=== PATIENT | male | born 1970 | race Caucasian/White ===

== ENCOUNTER 2018-03-04 19:09 | Inpatient (IN) | payer OTHER ==
[2018-03-04] MEDS ORDERED: Lorazepam 2 MG/ML VIAL ONE ×2 (19:28→19:55)
[2018-03-04] MEDS ORDERED: Fosphenytoin Sodium 1,500 MG in Sodium Chloride 0.9% 50 ML IVPB SCH (19:45)
[2018-03-04] MEDS ORDERED: Rocuronium Bromide 50 MG/5 ML VIAL ONE ×2 (19:56→19:57)
[2018-03-04 20:13] LABS: #Eosinphils 0.1 thou/uL (0.0-0.7); #Lymphocytes 2.1 thou/uL (1.20-3.40); #Monocytes 0.5 thou/uL (0.11-0.59); #Neutrophils 5.1 thou/uL (1.40-6.50); %Basophils 0.2 % (0.0-1.0); %Eosinophils 1.7 % (0.0-10.0); %Lymphocytes 27.2 % (21.0-51.0); %Monocytes 6.2 % (0.0-10.0); %Neutrophils 64.8 % (42.0-75.0); Hemoglobin 15.2 g/dL (14.0-18.0); Mean Corpuscular HGB CONC 33.9 g/dL (32.0-36.0); Mean Corpuscular Hemoglobin 33.9 pg (27.0-31.0); Mean Platelet Volume 6.2 fL (7.4-10.4); Platelet Count 229 thou/uL (130-400); RBC Distribution Width 11.3 % (11.5-14.5); Red Blood Cell (RBC) Count 4.47 mill/uL (4.70-6.10); White Blood Cell (WBC) Count 7.9 thou/uL (4.8-10.8)
[2018-03-04 20:26] LABS: Actual Bicarbonate (HCO3a) 27.3 mEq/L (22-26); Base Excess (BEa) 0.9 mEq/L (0 (+/-) 2.5); CO2 Tension 50.2 mmHg (35.0-45.0); O2 Tension (PaO2) 85.9 mmHg (80.0-100.0); pH, Arterial 7.35 (7.35-7.45)
[2018-03-04 20:27] LABS: Calcium, Ionized 1.2 mmol/L (1.12-1.30); Carboxyhemoglobin (COHb) 1.4 gm% (0.0-3.0); Hematocrit-ABG 43.7 % (42.0-52.0); Hemoglobin (Hb) 14.8 g/dL (14.0-18.0); Potassium - ABG Lab 3.6 mmol/L (3.70-5.30)
[2018-03-04 20:28] LABS: Analyzer IN Cardio ER; Puncture Site LRA
[2018-03-04 20:39] LABS: CKMB 0.7 ng/mL (0-6.6); Troponin I 0.013 ng/mL (< 0.028)
[2018-03-04 20:40] LABS: ALT (SGPT) 19 U/L (8-55); AST (SGOT) 16 U/L (5-34); Albumin 4.1 g/dL (3.5-5.0); Alkaline Phosphatase 82 U/L (40-150); Anion Gap 16 mmol/L (10-20); BUN (Urea Nitrogen) 9 mg/dL (8.9-20.6); Bilirubin, Total 0.4 mg/dL (0.2-1.2); CK (CPK) 62 U/L (30-200); Calc. Creatinine Clearance 0 mL/min (70-130); Calcium 9.1 mg/dL (7.8-10.44); Carbon Dioxide 22 mmol/L (22-29); Chloride 106 mmol/L (98-107); Estimated GFR-MDRD 77; Glucose 99 mg/dL (70-105); Lipase 27 U/L (8-78); Potassium 4.1 mmol/L (3.5-5.1); Protein, Total 7.1 g/dL (6.0-8.3); Sodium 140 mmol/L (136-145)
[2018-03-04 20:43] LABS: Carbamazepine-Tegretol 7.9 ug/mL (4.0-12.0)
[2018-03-04 21:03] LABS: Bilirubin Negative (Negative); Blood, Urine Negative (Negative); Clarity CLEAR (Clear); Glucose, Urine (Dipstick) Negative (Negative); Leukocyte Negative (Negative); Nitrite Negative (Negative); Protein, Urine (Dipstick) Negative (Neg-Trace); Specific Gravity, Urine 1.009 (1.002-1.036); Urobilinogen 0.2 mg/dL (0.2-1.0)
--- NOTE | 2018-03-04 21:03 | PDOC.FPRHP ---
- History of Present Illness Chief Complaint: status epilepticus History of Present Illness: History taken from EMS. Patient started with generalized tonic-clonic seizure at 5:30pm. He has a pertinent history of seizure disorder and CVA x2. In the field the patient was given 5 of versed and stopped seizing. On arrival to the ED the patient started seizing again and was given 5 more of versed along with ativan, he was no longer protecting his airway and thus was intubated. ED Course: Versed 5 in the field Versed 5 in the ED, Plus 2 2 of Ativan 1,500mg fosphenytoin 2g fentanyl Propofol sedation protocol - Allergies/Adverse Reactions Allergies Allergy/AdvReac Type Severity Reaction Status Date / Time lactose Allergy Verified 04/19/17 21:58 milk thistle (Silybum Allergy Verified 04/19/17 21:58 marianum) peanut Allergy Verified 04/19/17 21:58 - Home Medications Medication Instructions Recorded Confirmed Type Aspirin [Adult Low Dose Aspirin EC] 81 mg PO DAILY 04/19/17 03/04/18 History Atorvastatin Calcium 20 mg PO DAILY 04/19/17 03/04/18 History FLUoxetine HCl 20 mg PO HS 04/19/17 03/04/18 History Acetaminophen [Tylenol Regular 650 mg PO Q4H PRN #0 tab 04/20/17 03/04/18 Rx Strength] Cholecalciferol [Vitamin D3] 1,000 unit PO DAILY 03/04/18 03/04/18 History Docusate Sodium [Dulcolax Stool 100 mg PO BID 03/04/18 03/04/18 History Softener] Lisinopril [Zestril] 5 mg PO DAILY 03/04/18 03/04/18 History Meloxicam [Mobic] 15 mg PO DAILY 03/04/18 03/04/18 History Omeprazole 20 mg PO BID 03/04/18 03/04/18 History carBAMazepine [Carbamazepine] 200 mg PO TID 03/04/18 03/04/18 History - History PMHx: PSHx: FHx: Social: - Review of Systems ROS unobtainable: due to endotracheal tube - Vital signs BP: 107/70 HR: 103 RR: 18 Tmax: 100.0 Pox: 99% on RA Wt: 113.4 - Physical Exam -Constitutional: Patient is fighting sedation in the ED, motions that he wants tube taken out, no evidence of seizures at time of examination HEENT: normocephalic and atraumatic, PERRLA, no scleral icterus, TM's clear and intact, MMM Neck: supple, FROM Heart: RRR, normal S1/S2 Lungs: CTAB, no respiratory distress, good air movement, other (intubated) Abdomen: soft, non-tender, bowel sounds present, no masses/distention Musculoskeletal: normal structure, normal tone -Neurological: Patient motions he would like tube taken out. Withdraws to pain. Pupils Reactive. Skin: no rash/lesions, capillary refill <2 seconds Heme/Lymphatic: no unusual bruising or bleeding FMR H&P: Results - Labs Result Diagrams: 03/04/18 20:06 03/04/18 20:05 Lab results: WBC 7.9 thou/uL (4.8-10.8) 03/04/18 20:06 Hgb 15.2 g/dL (14.0-18.0) 03/04/18 20:06 Hct 44.8 % (42.0-52.0) 03/04/18 20:06 MCV 100.0 fl (80.0-94.0) H 03/04/18 20:06 Plt Count 229 thou/uL (130-400) 03/04/18 20:06 Neutrophils % 64.8 % (42.0-75.0) 03/04/18 20:06 ABG pH 7.35 (7.35-7.45) 03/04/18 20:16 ABG pCO2 50.2 mmHg (35.0-45.0) H 03/04/18 20:16 ABG pO2 85.9 mmHg (80.0-100.0) 03/04/18 20:16 Sodium 140 mmol/L (136-145) 03/04/18 20:05 Potassium 4.1 mmol/L (3.5-5.1) 03/04/18 20:05 Chloride 106 mmol/L (98-107) 03/04/18 20:05 Carbon Dioxide 22 mmol/L (22-29) 03/04/18 20:05 BUN 9 mg/dL (8.9-20.6) 03/04/18 20:05 Creatinine 1.03 mg/dL (0.6-1.3) 03/04/18 20:05 Glucose 99 mg/dL (70-105) 03/04/18 20:05 Calcium 9.1 mg/dL (7.8-10.44) 03/04/18 20:05 Total Bilirubin 0.4 mg/dL (0.2-1.2) 03/04/18 20:05 AST 16 U/L (5-34) 03/04/18 20:05 ALT 19 U/L (8-55) 03/04/18 20:05 Alkaline Phosphatase 82 U/L (40-150) 03/04/18 20:05 Creatine Kinase 62 U/L (30-200) 03/04/18 20:05 CK-MB (CK-2) 0.7 ng/mL (0-6.6) 03/04/18 20:06 B-Natriuretic Peptide Less than 10.0 pg/mL (0-100) 03/04/18 20:05 Serum Total Protein 7.1 g/dL (6.0-8.3) 03/04/18 20:05 Albumin 4.1 g/dL (3.5-5.0) 03/04/18 20:05 Lipase 27 U/L (8-78) 03/04/18 20:05 FMR H&P: A/P - Problem List (1) HTN (hypertension) Current Visit: No Status: Acute Code(s): I10 - ESSENTIAL (PRIMARY) HYPERTENSION Comment: Stable (2) TIA (transient ischemic attack) Current Visit: No Status: Acute (3) Hyperlipidemia Current Visit: No Status: Chronic Code(s): E78.5 - HYPERLIPIDEMIA, UNSPECIFIED Comment: Continue Lipitor - Plan # Status Epilepticus - propofol protocol - Fosphenytoin 1.5 g loading dose, 500 BID maintenance - EEG - Neuro consult in AM - UDS, U/A - Carbamazepime is therapeutic, restart when extubated # History of CVA x2 - moved all extremities - home meds once extubated # GERD - home protonix # Hx of Hep C - f/u outpt # HTN - home meds when extubated # Code - full # PPx - SCDs FMR H&P: Upper Level - Pertinent history 47 year old white male with past medical history CVA & seizures presents from custodial via EMS for status epilepticus. Onset 03/04/18 at 17:30. Generalized tonic clonic seizures reported. Patient received 10 mg Versed. He seized again in the ED and was intubated. He was initially responsive only to sternal rub on arrival. In the ED he was seen by Dr. Weeks and given Ativan 2 mg, 1 L NS, 1500 mg fosphenytoin, 100 mg rocuronium, 20 mg etomidate, and 8 mg Zofran. PMH based on records includes GERD, HTN, Hep C, and CVA x2 with residual deficits - Pertinent findings HR 108 BP 114/64 O2 sats 99% on RA Temp 97.7 General: Intubated and sedated Eyes: Pupils sluggish ENT: Endotracheal tube in place. CV: Slightly tachycardic. Regular rhythm. Pulses full and equal in all 4 extremities. Cap refill <2 seconds Resp: CTAB. No wheezing, rales, or rhonchi. Abdomen: Nondistended. No masses Extremities: No edema. Skin: No rash or ulcer. No palpable lesions Neuro: Patient sedated. - Plan Date/Time: 03/04/182102 IYves DO, have evaluated this patient and agree with findings/plan as outlined by internal auditor resident. Pertinent changes/additions are listed here. 47 year old white male presents with: 1) Status epilepticus - Admit to CCU. Continue propofol and fosphenytoin. CT head with no acute processes. Pulmonology consulted. Consult neuro in the morning. Seizure precautions. 2) History of CVA - Restart home meds when cleared for po. Consult PT/OT. 3) GERD - Protonix 4) Hep C - Treatment history unkown. Likely just needs outpatient follow up 5) HTN - Monitor BP. Restart home meds when cleared for po. Will give iv meds if needed Attending Addendum - Attending Addendum Date/Time: 03/05/18 0817 (seen on 03/04 in the ED) I personally evaluated the patient and discussed the management with Dr. Frank and team. I agree with and repeated. the History, Examination, Assessment and Plan documented above with any addition or exceptions noted below. Status epilepticus. Intubated. PMSFH and SH recreated from chart. Propfol gtt , lung protective ventilation, EEG and neuro consultation. Will be vigilant for infectious sources.
[2018-03-04] MEDS ORDERED: Midazolam HCl 2 mg/2 ml Vial ONE ×2 (21:05→21:45)
[2018-03-04 21:12] LABS: Amphetamine Not Detected (NotDetected); Barbiturates Screen Not Detected (NotDetected); Benzodiazepine Screen Not Detected (NotDetected); Cocaine Metabolite Screen Not Detected (NotDetected); Medtox Control Line Valid? VALID (VALID); Medtox Reader # READER 4; Methadone Not Detected (NotDetected); Methamphetamine Not Detected (NotDetected); Opiate Screen Not Detected (NotDetected); Oxycodone Screen Not Detected (NotDetected); Phencyclidine (PCP) Not Detected (NotDetected); THC/Cannabinoid Screen Not Detected (NotDetected); Tricyclic Screen Not Detected (NotDetected)
--- NOTE | 2018-03-04 21:14 | RAD ---
FRONTAL VIEW CHEST: 03/04/18 INDICATION: Altered mental status. FINDINGS: Endotracheal tube is present with tip projecting at the level of the thoracic inlet. There is enteric catheter traversing the left upper abdomen. Enlargement of the cardiac silhouette and mediastinal st ructures present. There is added density of the perihilar regions. The findings likely relate to vasc ular congestion. IMPRESSION: Evidence of CHF. Probable perihilar edema bilaterally. Intubated patient. Recommend continued followup. POS: [facility]
[2018-03-04] MEDS ORDERED: Fentanyl 100 MCG/2 ML VIAL ONE (21:18)
--- NOTE | 2018-03-04 21:25 | CT ---
EXAM: NONCONTRAST HEAD CT 03/04/18 HISTORY: Seizure, altered mental status. COMPARISON: 04/19/17. TECHNIQUE: Noncontrast head CT is performed from skull base to skull vertex. FINDINGS: No parenchymal hemorrhage. No extra-axial hematoma. No midline shift. Basilar cisterns are patent. Ag e appropriate brain volume. Cortical moran-white matter differentiation is preserved. Ventricles and sulci are patent and symmetric. The calvarium is intact. Adequate aeration of the mastoid air cells. There is mild mucosal thickening of the paranasal sinuses with small mucous retention cyst in both maxillary sinuses. IMPRESSION: No acute intracranial process. POS: [facility]
[2018-03-04] MEDS ORDERED: Propofol 1,000 MG/100 ML VIAL IV ONE (21:37)
[2018-03-04] MEDS ORDERED: Fentanyl CADD 250 ML IVPB SCH (22:08)
[2018-03-04] MEDS ORDERED: Fentanyl BOLUS 250 ML IVPB PRN (22:08)
[2018-03-04] MEDS ORDERED: DISCONTINUE PREVIOUS NARCOTIC PAIN MEDICATIONS AND BENZODIAZEPINES FS SCH (22:08)
[2018-03-04] MEDS ORDERED: fentaNYL Citrate/PF 2,000 MCG in Sodium Chloride 0.9% 60 ML IV SCH (22:15)
[2018-03-04] MEDS ORDERED: Ondansetron ODT 4 MG TAB SL PRN (22:25)
[2018-03-04] MEDS ORDERED: Sodium Chloride 0.9% 1,000 ML IV SCH (22:25)
[2018-03-04] MEDS ORDERED: Ondansetron PF 4 MG/2 ML Vial IVP PRN (22:25)
[2018-03-04] MEDS ORDERED: CCU Electrolyte Replacement 1 EACH IVPB ONE (22:28)
[2018-03-04] MEDS ORDERED: Acetaminophen 325 MG Suppository PR PRN (22:28)
[2018-03-04] MEDS ORDERED: Sedation Protocol FS ONE (22:28)
[2018-03-04] MEDS ORDERED: Lorazepam 2 MG/ML VIAL SLOW IVP PRN (22:28)
[2018-03-04] MEDS ORDERED: Potassium Phosphate 9 MMOL in Sodium Chloride 0.9% 100 ML IVPB PRN (22:32)
[2018-03-04] MEDS ORDERED: Magnesium Oxide 400 MG TAB PO PRN ×2 (22:32)
[2018-03-04] MEDS ORDERED: Magnesium 2 GM/NS 0.9% 100 ML 2 GM in Premix Bag 1 BAG IVPB PRN (22:32)
[2018-03-04] MEDS ORDERED: Potassium Phosphate 15 MMOL in Sodium Chloride 0.9% 250 ML 250 ML IV PRN (22:32)
[2018-03-04] MEDS ORDERED: CCU ELECTROLYTE REPLACEMENT PROTOCOL FS PRN (22:32)
[2018-03-04] MEDS ORDERED: Potassium Chloride 40 MEQ in Sodium Chloride 0.9% 250 ML 250 ML IVPB PRN (22:32)
[2018-03-04] MEDS ORDERED: Potassium Chloride 40 MEQ in Premix Bag 1 BAG IVPB PRN (22:32)
[2018-03-04] MEDS ORDERED: Potassium Phosphate 12 MMOL in Sodium Chloride 0.9% 250 ML 250 ML IV PRN (22:32)
[2018-03-04] MEDS ORDERED: Potassium Chloride 20 MEQ TAB PO PRN (22:32)
[2018-03-04] MEDS: Sodium Chloride 0.9% 1,000 ML IV SCH (22:49)
[2018-03-05] MEDS: Lorazepam 2 MG/ML VIAL SLOW IVP PRN ×3 (00:21→18:28)
[2018-03-05] MEDS: Propofol 1,000 MG/100 ML VIAL IV PRN ×4 (00:21→16:45)
--- NOTE | 2018-03-05 06:37 | PDOC.FM ---
- Objective Vital Signs & Weight: Vital Signs (12 hours) Pulse Resp BP 03/05/18 06:00 18 03/05/18 04:00 18 03/05/18 02:34 76 94/59 L 03/05/18 02:00 18 03/05/18 00:00 21 H 03/04/18 22:28 88 115/61 Weight Weight 115.3 kg Most Recent Monitor Data Heart Rate from ECG 80 NIBP 93/59 NIBP BP-Mean 70 Respiration from ECG 18 SpO2 100 I&O: 03/03/18 03/04/18 03/05/18 06:59 06:59 06:59 Intake Total 635 Output Total 1110 Balance -475 Result Diagrams: 03/04/18 20:06 03/04/18 20:05 <Delilah Cardenas - Last Filed: 03/05/18 06:44> - Objective Vital Signs & Weight: Vital Signs (12 hours) Temp Pulse Resp BP Pulse Ox 03/05/18 08:00 99.4 F 77 18 100 03/05/18 06:40 77 96/59 L 03/05/18 06:00 18 03/05/18 04:00 18 03/05/18 02:34 76 94/59 L 03/05/18 02:00 18 03/05/18 00:00 21 H 03/04/18 22:28 88 115/61 Weight Weight 115.3 kg Most Recent Monitor Data Heart Rate from ECG 82 NIBP 145/78 NIBP BP-Mean 94 Respiration from ECG 13 SpO2 100 I&O: 03/04/18 03/05/18 03/06/18 06:59 06:59 06:59 Intake Total 635 0 Output Total 1110 360 Balance -475 -360 Result Diagrams: 03/04/18 20:06 03/04/18 20:05 <Leroy Boston - Last Filed: 03/05/18 10:17> Dx/Plan (1) Recurrent seizures Code(s): G40.909 - EPILEPSY, UNSP, NOT INTRACTABLE, WITHOUT STATUS EPILEPTICUS Status: Acute (2) Seizure disorder Code(s): G40.909 - EPILEPSY, UNSP, NOT INTRACTABLE, WITHOUT STATUS EPILEPTICUS Status: Acute (3) H/O: CVA (cerebrovascular accident) Code(s): Z86.73 - PRSNL HX OF TIA (TIA), AND CEREB INFRC W/O RESID DEFICITS Status: Acute (4) HTN (hypertension) Code(s): I10 - ESSENTIAL (PRIMARY) HYPERTENSION Status: Acute (5) Hyperlipidemia Code(s): E78.5 - HYPERLIPIDEMIA, UNSPECIFIED Status: Chronic - Plan Plan: 1. Recurrent seizures - propofol protocol - Fosphenytoin 1.5 g loading dose, 500 BID maintenance - will consult Dr. Coburn this morning AM - UDS, U/A negative - Carbamazepime is therapeutic, restart when extubated 2. History of CVA x2 - moved all extremities - home meds once extubated 3. GERD - home protonix 4. Hx of Hep C - unaware if patient has been treated 5. HTN - home meds when extubated 8. PPx - SCDs <Delilah Cardenas - Last Filed: 03/05/18 06:44> Attending Addendum - Attending Addendum Date/Time: 03/05/18 1015 I personally evaluated the patient and discussed the management with Dr. Cardenas in ICU A10. I agree with the History, Examination, Assessment and Plan documented above with any addition or exceptions noted below. He is currently sedated on propofol, intubated and unresponsive. CT Brain is negative/normal. CXR hints of mild pulm vasc congestion. VS are Stable/normal. Lungs: CTA, Cor: RRR. O2 Sats 100% on vent. Abdomen soft. Ext: No C/E/C/P. Await results of EEG and appreciate Neurology input. MD Parish <Leroy Boston - Last Filed: 03/05/18 10:17>
[2018-03-05] MEDS: Pantoprazole 40 MG VIAL IVP SCH (10:52)
--- NOTE | 2018-03-05 11:12 | CON ---
DATE OF CONSULTATION: 03/05/2018 REASON FOR CONSULTATION: Ventilator management related to status epilepticus. HISTORY OF PRESENT ILLNESS: The patient is a 47-year-old [place] [facility] inmate who was brought into the [facility] room last night with generalized tonic-clonic seizures. He was intubated for airway protection . He was given Versed and stop seizing. There has been a question of whether he is still having par tial seizure in the right upper extremity with sedation has been held today. Currently, we are await ing neurologic input. PAST MEDICAL HISTORY: 1. Stroke. 2. Hypertension. 3. Hepatitis C. 4. Gastroesophageal reflux. PAST SURGICAL HISTORY: Unknown. PSYCHIATRIC HISTORY: Remarkable for depression. SOCIAL HISTORY: Not known. ALLERGIES: LACTOSE INTOLERANCE, MILK THISTLE, PEANUTS. MEDICATIONS: Prior to admission, Tegretol 200 mg t.i.d., fluoxetine 20 mg daily, atorvastatin 20 mg daily, acetaminophen 650 mg every 4 hours as needed, omeprazole 20 mg b.i.d., Mobic 15 mg daily, aaron nopril 5 mg daily, docusate 100 mg b.i.d., cholecalciferol 1000 units daily, aspirin 81 mg daily. REVIEW OF SYSTEMS: Unobtainable as the patient is in mechanical ventilation. PHYSICAL EXAMINATION: VITAL SIGNS: Temperature 99.3, pulse 86, blood pressure 146/96, O2 sat 100%. GENERAL: The patient is sedated on propofol. HEENT: Pupils are reactive. Sclerae anicteric. Oropharynx clear. NECK: No JVD. LUNGS: Clear. CARDIOVASCULAR: S1, S2 regular, without murmur. ABDOMEN: Soft and nontender. EXTREMITIES: No clubbing, cyanosis, or edema. NEUROLOGIC: Patient is unable to follow commands at this time. Apparently, becomes agitated very ea sily when sedation is stopped. IMAGING: Brain CT was negative. Chest x-ray demonstrates mild cardiomegaly. ET tube resides about 5.3 cm above the ab. LABORATORY DATA: White blood cell count 7.9, hematocrit 44.8, platelet count 229. PH 7.35, pCO2 of 50, pO2 85, this on SIMV rate 15, tidal volume 500, PEEP 5, pressure support 0, FiO2 100%. Sodium 14 0, potassium 4.1, chloride 106, CO2 22, BUN 9, creatinine 1.0, glucose 99. Prolactin level 32. TSH 1.15. Urine drug screen was negative. Tegretol level was 7.9, which is in the therapeutic range. ASSESSMENT: 1. Status epilepticus. 2. Acute respiratory failure related to status epilepticus. PLAN: 1. Neurology input. 2. Would hold Versed drip. 3. If mental status is appropriate on minimal sedation, then I would extubate the patient.
--- NOTE | 2018-03-05 11:23 | PDOC.FM ---
- Subjective Subjective: Mr. Marquez is intubated and sedated on propofol at this time. When sedation is turned off he will intermittently open his eyes to voice and sometimes will squeeze either hand. He withdraws to pain. He appears comfortable and there are no new concerns per nursing. They note that he may have some ongoing seizure activity with his right upper extremity when sedation is turned off. - Objective MAR Reviewed: Yes Vital Signs & Weight: Vital Signs (12 hours) Temp Pulse Resp BP Pulse Ox 03/05/18 10:24 79 112/67 03/05/18 08:00 99.4 F 77 18 100 03/05/18 06:40 77 96/59 L 03/05/18 06:00 18 03/05/18 04:00 18 03/05/18 02:34 76 94/59 L 03/05/18 02:00 18 03/05/18 00:00 21 H Weight Weight 115.3 kg Most Recent Monitor Data Heart Rate from ECG 78 NIBP 112/67 NIBP BP-Mean 83 Respiration from ECG 12 SpO2 100 I&O: 03/04/18 03/05/18 03/06/18 06:59 06:59 06:59 Intake Total 635 0 Output Total 1110 510 Balance -475 -510 Result Diagrams: 03/04/18 20:06 03/04/18 20:05 <Delilah Cardenas E - Last Filed: 03/05/18 11:25> - Objective Vital Signs & Weight: Vital Signs (12 hours) Temp Pulse Resp BP Pulse Ox 03/05/18 10:24 79 112/67 03/05/18 08:00 99.4 F 77 18 100 03/05/18 06:40 77 96/59 L 03/05/18 06:00 18 03/05/18 04:00 18 03/05/18 02:34 76 94/59 L 03/05/18 02:00 18 03/05/18 00:00 21 H Weight Weight 115.3 kg Most Recent Monitor Data Heart Rate from ECG 78 NIBP 112/67 NIBP BP-Mean 83 Respiration from ECG 12 SpO2 100 I&O: 03/04/18 03/05/18 03/06/18 06:59 06:59 06:59 Intake Total 635 0 Output Total 1110 510 Balance -475 -510 Result Diagrams: 03/04/18 20:06 03/04/18 20:05 <Leroy Boston - Last Filed: 03/05/18 11:54> Phys Exam - Physical Examination Constitutional: NAD intubated, sedated HEENT: PERRLA, moist MMs, sclera anicteric ET tube in place Neck: no nodes Respiratory: no wheezing diffuse rhonchi BL Cardiovascular: RRR, no significant murmur Gastrointestinal: soft, no distention, positive bowel sounds Musculoskeletal: no edema, pulses present opens eyes to voice, spont moves all extremities ongoing R sided deficits Skin: no rash, normal turgor, cap refill <2 seconds <Delilah Cardenas E - Last Filed: 03/05/18 11:25> Dx/Plan (1) Recurrent seizures Code(s): G40.909 - EPILEPSY, UNSP, NOT INTRACTABLE, WITHOUT STATUS EPILEPTICUS Status: Acute (2) Seizure disorder Code(s): G40.909 - EPILEPSY, UNSP, NOT INTRACTABLE, WITHOUT STATUS EPILEPTICUS Status: Acute (3) H/O: CVA (cerebrovascular accident) Code(s): Z86.73 - PRSNL HX OF TIA (TIA), AND CEREB INFRC W/O RESID DEFICITS Status: Acute (4) HTN (hypertension) Code(s): I10 - ESSENTIAL (PRIMARY) HYPERTENSION Status: Acute (5) Hyperlipidemia Code(s): E78.5 - HYPERLIPIDEMIA, UNSPECIFIED Status: Chronic - Plan Plan: 1. Recurrent seizures - Propofol sedation protocol at 20, on Versed gtt overnight - s/p Fosphenytoin 1.5 g loading dose, 500 BID maintenance - will consult Dr. Coburn this morning - UDS, U/A negative - Carbamazepime is therapeutic, consider restart when extubated vs alternate regimen per neuro recs - Possible ongoing seizure activity in RUE when sedation off 2. History of CVA x2 - moved all extremities - home meds once extubated 3. GERD - protonix 4. Hx of Hep C - unaware if patient has been treated 5. HTN - home meds when extubated 8. PPx - Lovenox <Delilah Cardenas - Last Filed: 03/05/18 11:25> Attending Addendum - Attending Addendum Date/Time: 03/05/18 1153 I personally evaluated the patient and discussed the management with Dr. Cardenas in ICU A10. I agree with the History, Examination, Assessment and Plan documented above with any addition or exceptions noted below. He is currently sedated on propofol, intubated and unresponsive. CT Brain is negative/normal. CXR hints of mild pulm vasc congestion. VS are Stable/normal. Lungs: CTA, Cor: RRR. O2 Sats 100% on vent. Abdomen soft. Ext: No C/E/C/P. Await results of EEG and appreciate Neurology input. MD Parish <Leroy Boston - Last Filed: 03/05/18 11:54>
[2018-03-05] MEDS: Sodium Chloride 0.9% 1,000 ML IV SCH (13:11)
[2018-03-05] MEDS ORDERED: Acetaminophen 650 MG Suppository PR PRN (17:00)
[2018-03-05] MEDS: Morphine 4 MG/ML VIAL SLOW IVP PRN (19:46)
[2018-03-05] MEDS: Enoxaparin Sodium 40 MG/0.4 ML SYRINGE SC SCH (19:49)
[2018-03-06] MEDS: Piperacillin/Tazobactam 4.5 GM in Sodium Chloride 0.9% 100 ML IVPB SCH ×3 (04:30→20:13)
--- NOTE | 2018-03-06 04:56 | CON ---
DATE OF CONSULTATION: 03/05/2018 REFERRING PROVIDER: Blayne Frank MD REASON FOR CONSULTATION: Seizure. HISTORY OF PRESENT ILLNESS: Mr. Marquez is a 47-year-old male who has been consulted for e valuation of recurrent seizures. History is obtained from patient's medical chart as patient is unab le to provide and there are no other family member present for to provide corroborative history. Tiffanie hicks is a nursing home inmate who was brought into the emergency room last night with the generalized tonic clonic seizures. He was intubated for airway protection. He has been given Versed along with Keppr a as a loading dose to help stop the seizures. According to the nurse assisting care of the patient, he has not had any seizures since being admitted in the ICU. PAST MEDICAL HISTORY: Significant for history of hypertension, hepatitis C, GERD, and stroke. PAST SURGICAL HISTORY: Unknown. SOCIAL HISTORY: Unknown. CURRENT MEDICATIONS: Unable to obtain. ALLERGIES: Include LACTOSE INTOLERANCE, PEANUTS, and MILK. REVIEW OF SYSTEMS: Unable to perform. PHYSICAL EXAMINATION: VITAL SIGNS: Blood pressure of 116/67, pulse of 79, temperature of 100.8, respirations of 12 on mech anical ventilation. GENERAL: Intubated, sedated male, in no apparent distress. RESPIRATORY: Clear to auscultation bilaterally. CARDIOVASCULAR: Regular rate and rhythm. NEUROLOGIC: Mental status, the patient is intubated and sedated propofol. He does not respond to ve rbal or noxious stimuli. Cranial nerves: Pupils are 3 mm and reactive. He does breathe over the ve ntilator machine. He does have cough and gag reflex. Motor exam showed normal tone and bulk. He do es not withdraw to noxious stimuli in both upper and lower extremities. LABORATORY DATA: Reviewed, which included CBC, CMP, TSH, prolactin level, BNP, troponin, CPK, urinal ysis, and urine drug screen and carbamazepine level, which is significant for prolactin level of 32.1 3, otherwise unremarkable. IMAGING STUDIES: CT head without contrast was reviewed, which showed no acute intracranial abnormali ty. IMPRESSION: Generalized tonic clonic seizure. ASSESSMENT AND PLAN: Mr. Marquez is a 47-year-old male who presented with recurrent seizur e episodes. At this time, I would recommend continuing him on Keppra 500 mg IV b.i.d. I would recom mend to wean him off of sedation and extubate when medically stable, improved by intensive care physi fortunato. Once he is extubated and able to have oral intake, Keppra can be switched over to 500 mg p.o. b.i.d. Continue supportive care.
--- NOTE | 2018-03-06 07:34 | PDOC.FM ---
- Subjective Subjective: Intubated and sedated this morning. Will arouse to voice and nods his head when asked if he has pain, specifically headache. Concern from primary team and nursing for developing sepsis with fever and tachycardia overnight. - Objective MAR Reviewed: Yes Vital Signs & Weight: Vital Signs (12 hours) Temp Pulse Resp BP Pulse Ox 03/05/18 22:40 100 03/05/18 22:28 15 03/05/18 22:02 78 97/58 L 03/05/18 22:00 15 03/05/18 20:00 100.8 F H 99 15 97 Weight Admit Weight 115.212 kg Weight 115.3 kg Most Recent Monitor Data Heart Rate from ECG 92 NIBP 117/73 NIBP BP-Mean 91 Respiration from ECG 17 SpO2 97 I&O: 03/05/18 03/06/18 03/07/18 06:59 06:59 06:59 Intake Total 635 1198.2 Output Total 1110 1425 Balance -475 -226.8 Result Diagrams: 03/06/18 07:22 03/06/18 07:22 Radiology Reviewed by me: Yes <Delilah Cardenas - Last Filed: 03/06/18 09:22> - Objective Vital Signs & Weight: Vital Signs (12 hours) Pulse Resp BP Pulse Ox 03/06/18 08:03 102 H 107/66 03/06/18 04:00 94 L 03/05/18 22:40 100 03/05/18 22:28 15 Weight Admit Weight 115.212 kg Weight 114.8 g Most Recent Monitor Data Heart Rate from ECG 105 NIBP 134/67 NIBP BP-Mean 80 Respiration from ECG 27 SpO2 96 I&O: 03/05/18 03/06/18 03/07/18 06:59 06:59 06:59 Intake Total 635 3998.2 Output Total 1110 1522 Balance -475 2476.2 Result Diagrams: 03/06/18 07:22 03/06/18 07:22 <Leroy Boston - Last Filed: 03/06/18 10:14> Phys Exam - Physical Examination Constitutional: NAD HEENT: PERRLA dry MM, ET tube in place Neck: supple scattered rhonchi, decreased air entry in LLL Cardiovascular: RRR, no significant murmur Gastrointestinal: soft, no distention, positive bowel sounds Musculoskeletal: no edema, pulses present Neurological: non-focal, moves all 4 limbs Deviation from normal: responds to yes/no questions Skin: no rash, cap refill <2 seconds <Delilah Cardenas E - Last Filed: 03/06/18 09:22> Dx/Plan (1) Recurrent seizures Code(s): G40.909 - EPILEPSY, UNSP, NOT INTRACTABLE, WITHOUT STATUS EPILEPTICUS Status: Acute (2) Seizure disorder Code(s): G40.909 - EPILEPSY, UNSP, NOT INTRACTABLE, WITHOUT STATUS EPILEPTICUS Status: Acute (3) H/O: CVA (cerebrovascular accident) Code(s): Z86.73 - PRSNL HX OF TIA (TIA), AND CEREB INFRC W/O RESID DEFICITS Status: Acute (4) HTN (hypertension) Code(s): I10 - ESSENTIAL (PRIMARY) HYPERTENSION Status: Acute (5) Hyperlipidemia Code(s): E78.5 - HYPERLIPIDEMIA, UNSPECIFIED Status: Chronic - Plan Plan: 1. Recurrent seizures - Propofol sedation protocol - Central line placed this morning for concern of decompensation with fever, change in UOP and possible aspiration PNA - s/p Fosphenytoin 1.5 g loading dose, 500 BID maintenance - Appreciate Dr. Coburn's assistance - UDS, U/A negative - Carbamazepime is therapeutic, consider restart when extubated vs alternate regimen per neuro recs - Possible ongoing seizure activity in RUE when sedation off 2. Concern for sepsis - Fever, tachycardia, decreased UOP this morning - BCx and UCx sent, CXR pending - Repeat labs pending - Vanc and zosyn started - 1L NS bolus - Lactic acid pending - Possible L lung PNA - Peripheral access lost so central line placed this morning - LP at bedside this morning 3. History of CVA x2 - moved all extremities - home meds once extubated 4. GERD - protonix 5. Hx of Hep C - unaware if patient has been treated - OP f/u 6. HTN - home meds when extubated 7. PPx - Lovenox <Delilah Cardenas E - Last Filed: 03/06/18 09:22> Attending Addendum - Attending Addendum Date/Time: 03/06/18 1007 I personally evaluated the patient and discussed the management with Dr. Cardenas. I agree with the History, Examination, Assessment and Plan documented above with any addition or exceptions noted below. Diagnostic Lumbar Puncture performed and supervised and assisted by me. Clear fluid 10 ml removed and sent to lab. Opening pressure 28.6 cm CSF. Sedated on Vent. T 100.9. Lungs: CTA with a few raspy upper airway sounds. Cor: RRR, no murmur. Abd soft. Moves all 4 extremity. Endorsed headache. Central line placed by night team. CXR viewed by me (radiology report pending) shows excellent position of line in proximal SVC, no pneumothorax and cardiomegaly with prominent mediastinum. Appreciate Dr. Yoon's Pulmonary consult note. Blood cultures pending. A: Seizure Disorder with recurrent seizures, admitted with Status Epilepticus. Sepsis, Likely due to Aspiration Pneumonitis. Rule out Meningitis Insulin Dependent Type 2 Diabetes Mellitus Hx of Stroke Hyperlipidemia GERD P: continue Vent, sedation, Antibiotic coverage. MD Parish <Leroy Boston - Last Filed: 03/06/18 10:14>
[2018-03-06 07:38] LABS: Actual Bicarbonate (HCO3a) 24.6 mEq/L (22-26); Base Excess (BEa) -1.6 mEq/L (0 (+/-) 2.5); CO2 Tension 47.7 mmHg (35.0-45.0); Carboxyhemoglobin (COHb) 1.3 gm% (0.0-3.0); Hematocrit-ABG 39.7 % (42.0-52.0); Hemoglobin (Hb) 12.7 g/dL (14.0-18.0); O2 Tension (PaO2) 78.4 mmHg (80.0-100.0); Puncture Site RRA; pH, Arterial 7.33 (7.35-7.45)
[2018-03-06 07:39] LABS: ALV-art Gradient 215.975 (0-20)
[2018-03-06] MEDS: Vancomycin HCl 1.5 GM in Sodium Chloride 0.9% 250 ML 300 ML IVPB SCH ×3 (07:55→22:40)
[2018-03-06 08:06] LABS: Anion Gap 13 mmol/L (10-20); BUN (Urea Nitrogen) 8 mg/dL (8.9-20.6); Calc. Creatinine Clearance 192 mL/min (70-130); Calcium 7.9 mg/dL (7.8-10.44); Carbon Dioxide 22 mmol/L (22-29); Chloride 109 mmol/L (98-107); Estimated GFR-MDRD Greater than 90; Glucose 74 mg/dL (70-105); Potassium 3.3 mmol/L (3.5-5.1); Sodium 141 mmol/L (136-145)
[2018-03-06] MEDS: Propofol 1,000 MG/100 ML VIAL IV PRN ×6 (08:12→23:54)
[2018-03-06] MEDS: Pantoprazole 40 MG VIAL IVP SCH (08:14)
[2018-03-06] MEDS ORDERED: Sodium Chloride 0.9% 1,000 ML IV SCH (08:15)
--- NOTE | 2018-03-06 08:31 | PRG ---
DATE OF SERVICE: 03/06/2018 Thirty-five minutes critical care time. This patient decompensated last night in terms of low blood pressure and a fever. PHYSICAL EXAMINATION: VITAL SIGNS: On exam his T-max was 100.9, pulse is currently 92, blood pressure 117/73, O2 sat 97%. He is obtunded, but is receiving some propofol. HEENT: Unremarkable. NECK: No JVD. LUNGS: Fairly clear. CARDIAC: S1, S2, tachycardic. ABDOMEN: Soft, nontender. EXTREMITIES: No clubbing, cyanosis, or edema. LABORATORY DATA: PH 7.33, pCO2 47, pO2 80, on SIMV rate 12, tidal volume 500, PEEP 5, pressure suppo rt 10, FiO2 50%. Chemistry pending. CBC pending. ASSESSMENT: 1. Aspiration pneumonitis. Meningitis would also be in the differential. 2. Acute respiratory failure requiring mechanical ventilation. 3. Seizures. PLAN: 1. I would recommend lumbar puncture. 2. I agree with antibiotics. 3. Hold off on extubation until sepsis issue is more clearly resolved. 4. Bolus IV fluids. 5. Check CVP monitoring.
[2018-03-06] MEDS: Lorazepam 2 MG/ML VIAL SLOW IVP PRN ×2 (08:36→19:27)
[2018-03-06] MEDS: Morphine 4 MG/ML VIAL SLOW IVP PRN (08:36)
--- NOTE | 2018-03-06 08:43 | PDOC.OP ---
Operative Note - Operative Note Operative Note: INDICATION: vascular access; hypotension PROCEDURE QA AUTOMATION ARCHITECT: Son Che MD; Deric Godoy MD ATTENDING PHYSICIAN: Deric Wolfe MD In Attendance Y The procedure was performed emergently and the permission was implied because of the emergent nature. PROCEDURE SUMMARY: A time out was performed. I wore a surgical cap, mask with protective eyewear, full gown and sterile gloves throughout the procedure. The patient was placed in Trendelenburg position. RIGHT neck region was prepped using chlorhexidine scrub and draped in sterile fashion using a three quarter sheet drape and sterile towels. The medial and lateral heads of the sternocleidomastoid muscle were identified as was the carotid pulse. The Internal Jugular vein was identified using the ultrasound. Anesthesia was achieved over the vein using 1% lidocaine. Using real-time out of plane guidance, the introducer needle was inserted into the Internal Jugular vein under direct ultrasound visualization. Venous blood was withdrawn. The syringe was removed and a guidewire was advanced into the introducer needle. The guidewire was visualized in the Internal Jugular Vein by ultrasound. A small incision was made at the skin surface with a scalpel and the introducer needle was exchanged for a dilator over the guidewire. After appropriate dilation was obtained, the dilator was exchanged over the wire for a triple lumen central venous catheter. The wire was removed and the catheter was sutured in place at 17 cm. A sterile sorbaview shield was placed over the catheter at the insertion site. The patient tolerated the procedure without any hemodynamic compromise. At time of procedure completion, all ports aspirated and flushed properly. Post-procedure chest x-ray is pending at this time. Estimated blood loss is minimal. <Son Che - Last Filed: 03/06/18 08:39> Attending Addendum - Attending Addendum Date/Time: 03/06/1851 I was present for entire procedure. Rocuronium given for patient safety in addition to sedation as patient moving while draped. Uncomplicated placement, one attempt. + lung sliding post procedure. Await CXR. Will discuss with primary as now febrile with infiltrates on CXR, but also with seizures. <Deric Wolfe - Last Filed: 03/06/18 08:53>
[2018-03-06 09:04] LABS: #Basophils 0.1 thou/uL (0.0-0.2); #Eosinphils 0.3 thou/uL (0.0-0.7); #Lymphocytes 0.9 thou/uL (1.20-3.40); #Monocytes 0.4 thou/uL (0.11-0.59); #Neutrophils 5.9 thou/uL (1.40-6.50); %Basophils 0.7 % (0.0-1.0); %Eosinophils 3.4 % (0.0-10.0); %Lymphocytes 11.7 % (21.0-51.0); %Monocytes 5.4 % (0.0-10.0); %Neutrophils 78.8 % (42.0-75.0); Hemoglobin 12.6 g/dL (14.0-18.0); Mean Corpuscular HGB CONC 32.1 g/dL (32.0-36.0); Mean Corpuscular Hemoglobin 33.7 pg (27.0-31.0); Mean Platelet Volume 7.2 fL (7.4-10.4); Platelet Count 179 thou/uL (130-400); RBC Distribution Width 11.5 % (11.5-14.5); Red Blood Cell (RBC) Count 3.75 mill/uL (4.70-6.10); White Blood Cell (WBC) Count 7.4 thou/uL (4.8-10.8)
--- NOTE | 2018-03-06 09:05 | RAD ---
SINGLE VIEW CHEST: Date: 03/06/18 COMPARISON: 03/04/18. HISTORY: Fever and tachypnea. FINDINGS: Single view of the chest shows an enlarged, but stable cardiomediastinal silhouette. The lines and tu bes are unchanged in position. There is bilateral perihilar fullness. No consolidation, mass, or pleu ral effusion seen. IMPRESSION: 1. Stable position of lines and tubes. 2. Cardiomegaly. POS: [facility]
--- NOTE | 2018-03-06 09:57 | RAD ---
SINGLE VIEW OF THE CHEST: COMPARISON: 03/06/18. HISTORY: Central line placement. History of fever and tachypnea. FINDINGS: A single view of the chest shows an enlarged but stable cardiomediastinal silhouette. The endotrache al tube now appears to be slightly high and its tip should be advanced approximately 2.5 cm. The NG tube is unchanged in position. There is a new right IJ central venous catheter with its tip in the s uperior vena cava. No pneumothorax is seen. IMPRESSION: 1. Appropriate position of central venous catheter without evidence of complication. 2. High endotracheal tube should be advanced approximately 2 to 2.5 cm. CODE T POS: [facility]
[2018-03-06] MEDS ORDERED: Propofol BOLUS 1,000 MG/100 ML VIAL IV PRN (10:05)
[2018-03-06] MEDS ORDERED: Morphine 4 MG/ML VIAL SLOW IVP PRN (10:05)
[2018-03-06] MEDS ORDERED: Fentanyl BOLUS 250 ML IVPB PRN (10:05)
[2018-03-06 10:14] LABS: Bilirubin Small (Negative); Blood, Urine Negative (Negative); Clarity CLEAR (Clear); Glucose, Urine (Dipstick) Negative (Negative); Leukocyte Negative (Negative); Nitrite Negative (Negative); Protein, Urine (Dipstick) 30 mg/dL (Neg-Trace); Specific Gravity, Urine 1.035 (1.002-1.036); pH, Urine 5.5 (5.0-9.0)
[2018-03-06 10:17] LABS: Bacteria/HPF None Seen HPF (None Seen); Hyaline Casts/LPF 0-3 HYALINE CAST LPF (0-3 Hyaline); Pathc Cast-AUWi Flag 0.29 (0-2.49); Squamous Epithelial None Seen HPF (0-3); WBC/HPF 0-3 HPF (0-3)
[2018-03-06 10:24] LABS: Color Of CSF Supernatant COLORLESS (Colorless); Tube # 2; Unspun CSF Color COLORLESS (Colorless)
[2018-03-06 10:25] LABS: CSF Source CSF; Clarity Clear (Clear); RBC Count - Manual 0 /cumm (None Seen); Tube # 4; WBC/NonHematics Count - Manual 0 /cumm (0-5)
[2018-03-06 10:39] LABS: CSF, Glucose 63 mg/dl (40-70); CSF, Protein 31 mg/dL (15-40)
--- NOTE | 2018-03-06 10:49 | PDOC.OP ---
Operative Note - Operative Note Operative Note: Lumbar Puncture Date: 03/06/2018 Time: 0930 Indication: Sepsis, Seizures, Altered Mental Status Resident: Delilah Cardenas MD, PGY-2 Attending: Leroy Boston MD A time-out was completed verifying correct patient, procedure, site, positioning , and special equipment if applicable. The patient was placed in the right lateral decubitus position in a semi- position with help from the nursing staff and medical student. The area was cleansed and draped in usual sterile fashion. 1% lidocaine was used anesthetize the surrounding skin area. A 20- gauge 3.5-inch spinal needle was placed in the L4-L5 interspace. Clear cerebral spinal fluid was obtained and the opening pressure was noted to be 28.6cm. One tube was filled with 1mL and 3 tubes were filled with 3 mL of CSF. These were sent for the usual tests, including 1 tube to be held for further analysis if needed. Dr. Boston was present for the entire procedure Estimated Blood Loss: 1 mL The patient tolerated the procedure well and there were no complications. <Delilah Cardenas - Last Filed: 03/06/18 10:42> Attending Addendum - Attending Addendum Date/Time: 03/07/18 1549 I personally supervised and assisted with the diagnostic Lumbar Puncture and discussed the management with Dr. Cardenas. I agree with the Procedure and Plan documented above. MD Parish <Leroy Boston - Last Filed: 03/07/18 15:50>
[2018-03-06 11:12] LABS: RBC/HPF 0-3 HPF (0-3)
[2018-03-06] MEDS: Sodium Chloride 0.9% 1,000 ML IV SCH ×4 (13:53→23:46)
[2018-03-06] MEDS ORDERED: Potassium Chloride 40 MEQ in Premix Bag 1 BAG IVPB ONE (17:45)
[2018-03-06] MEDS: Enoxaparin Sodium 40 MG/0.4 ML SYRINGE SC SCH (20:26)
[2018-03-07] MEDS: Propofol 1,000 MG/100 ML VIAL IV PRN (01:48)
[2018-03-07] MEDS: Piperacillin/Tazobactam 4.5 GM in Sodium Chloride 0.9% 100 ML IVPB SCH ×3 (03:51→20:39)
[2018-03-07] MEDS: Lorazepam 2 MG/ML VIAL SLOW IVP PRN (03:52)
[2018-03-07 05:12] LABS: #Eosinphils 0.4 thou/uL (0.0-0.7); #Lymphocytes 1.4 thou/uL (1.20-3.40); #Monocytes 0.9 thou/uL (0.11-0.59); #Neutrophils 6.8 thou/uL (1.40-6.50); %Basophils 0.1 % (0.0-1.0); %Eosinophils 4.3 % (0.0-10.0); %Lymphocytes 14.8 % (21.0-51.0); %Monocytes 9.8 % (0.0-10.0); %Neutrophils 71.1 % (42.0-75.0); Hemoglobin 12.9 g/dL (14.0-18.0); Mean Corpuscular HGB CONC 34.6 g/dL (32.0-36.0); Mean Platelet Volume 6.8 fL (7.4-10.4); Platelet Count 151 thou/uL (130-400); RBC Distribution Width 11.3 % (11.5-14.5); Red Blood Cell (RBC) Count 3.69 mill/uL (4.70-6.10); White Blood Cell (WBC) Count 9.6 thou/uL (4.8-10.8)
[2018-03-07 05:39] LABS: Vancomycin, Trough 21.1 ug/mL
[2018-03-07 05:41] LABS: Anion Gap 11 mmol/L (10-20); BUN (Urea Nitrogen) 8 mg/dL (8.9-20.6); Calc. Creatinine Clearance 0 mL/min (70-130); Calcium 8.1 mg/dL (7.8-10.44); Carbon Dioxide 22 mmol/L (22-29); Chloride 110 mmol/L (98-107); Estimated GFR-MDRD Greater than 90; Glucose 84 mg/dL (70-105); Potassium 3.7 mmol/L (3.5-5.1); Sodium 139 mmol/L (136-145)
--- NOTE | 2018-03-07 05:55 | PDOC.FM ---
- Subjective Subjective: Self-extubated this morning at 0605 per nursing staff. He was in soft restraints and reached down and pulled out the tube. He is now on bipap, satting well, but sedation is off for concern of depressing respiratory drive. He is intermittently responsive to questions but overall non-cooperative. - Objective MAR Reviewed: Yes Vital Signs & Weight: Vital Signs (12 hours) Temp Pulse Resp Pulse Ox 03/07/18 02:50 87 03/07/18 02:00 19 03/07/18 00:00 18 03/06/18 22:43 78 03/06/18 22:00 19 03/06/18 20:00 100.4 F H 81 21 H 93 L 03/06/18 18:49 84 03/06/18 18:00 21 H Weight Admit Weight 115.212 kg Weight 114.8 g Most Recent Monitor Data Heart Rate from ECG 90 NIBP 115/81 NIBP BP-Mean 102 Respiration from ECG 16 SpO2 97 I&O: 03/05/18 03/06/18 03/07/18 06:59 06:59 06:59 Intake Total 635 3998.2 3438 Output Total 1110 1522 1405 Balance -475 2476.2 2033 Result Diagrams: 03/07/18 04:30 03/07/18 04:30 Radiology Reviewed by me: Yes (CXR stable) <Delilah Cardenas - Last Filed: 03/07/18 09:20> - Objective Vital Signs & Weight: Vital Signs (12 hours) Temp Pulse Resp BP Pulse Ox 03/07/18 13:08 116 H 34 H 93 L 03/07/18 13:05 116 H 34 H 93 L 03/07/18 09:15 116 H 25 H 92 L 03/07/18 09:11 116 H 25 H 92 L 03/07/18 08:00 100.5 F H 116 H 25 H 93 L 03/07/18 07:00 100.4 F H 03/07/18 06:32 102 H 21 H 95 03/07/18 06:30 102 H 21 H 95 03/07/18 06:21 101 H 117/73 03/07/18 04:00 18 Weight Admit Weight 115.212 kg Weight 114.2 kg Most Recent Monitor Data Heart Rate from ECG 107 NIBP 136/62 NIBP BP-Mean 83 Respiration from ECG 28 SpO2 97 I&O: 03/06/18 03/07/18 03/08/18 06:59 06:59 06:59 Intake Total 3998.2 3921 500 Output Total 1522 2065 2085 Balance 2476.2 1856 -1585 Result Diagrams: 03/07/18 04:30 03/07/18 04:30 <Leroy Boston - Last Filed: 03/07/18 16:02> Phys Exam - Physical Examination agitated, intermittently cooperative with questions/commands HEENT: PERRLA, moist MMs, sclera anicteric Neck: supple mild inspiratory wheezing BL Cardiovascular: RRR, no significant murmur intermittently tachycardic Gastrointestinal: soft, non-tender, no distention, positive bowel sounds Musculoskeletal: no edema, pulses present Neurological: non-focal, moves all 4 limbs Deviation from normal: agitated Skin: normal turgor, cap refill <2 seconds Deviation from normal: tatttoos noted <Delilah Cardenas - Last Filed: 03/07/18 09:20> Dx/Plan (1) Recurrent seizures Code(s): G40.909 - EPILEPSY, UNSP, NOT INTRACTABLE, WITHOUT STATUS EPILEPTICUS Status: Acute (2) Seizure disorder Code(s): G40.909 - EPILEPSY, UNSP, NOT INTRACTABLE, WITHOUT STATUS EPILEPTICUS Status: Acute (3) H/O: CVA (cerebrovascular accident) Code(s): Z86.73 - PRSNL HX OF TIA (TIA), AND CEREB INFRC W/O RESID DEFICITS Status: Acute (4) HTN (hypertension) Code(s): I10 - ESSENTIAL (PRIMARY) HYPERTENSION Status: Acute (5) Hyperlipidemia Code(s): E78.5 - HYPERLIPIDEMIA, UNSPECIFIED Status: Chronic - Plan Plan: 1. Recurrent seizures - Propofol sedation protocol, not currently on 2/2 self-extubation - s/p Fosphenytoin 1.5 g loading dose, 500 BID maintenance - Appreciate Dr. Coburn's assistance - UDS, U/A negative - Previously on carbamazepine - Possible intermittent ongoing seizure activity in RUE when sedation off - EEG pending 2. Concern for sepsis - Continuing to spike fevers this morning, other VS stable - BCx and UCx sent, CXR pending - AM labs stable - Vanc and zosyn started (03/06) - Van trough this morning slightly high, will decrease dose - Lactic acid 0.9 - CXR stable - Central line placed (03/06) for concern of decompensation with fever, change in UOP and possible aspiration PNA - LP at bedside (03/06), preliminary studies with mildly elevated opening pressure, otherwise unremarkable 3. History of CVA x2 - moved all extremities - home meds once swallow study passed: atorvastatin 20mg, ASA 81mg 4. GERD - IV protonix - on omeprazole OP 5. Hx of Hep C - unaware if patient has been treated - OP f/u - will check HIV/RPR with labs tomorrow morning 6. HTN - home meds when swallow study passed if indicated - lisinopril 7. Bipolar D/O, Depression - Patient reports diagnosis - On prozac OP - Consider Geodon PRN agitatoin and consider starting Seroquel 8. PPx - Lovenox, protonix <Delilah Cardenas - Last Filed: 03/07/18 09:20> Attending Addendum - Attending Addendum Date/Time: 03/07/18 8641 I personally evaluated the patient and discussed the management with Dr. Cardenas. I agree with the History, Examination, Assessment and Plan documented above with any addition or exceptions noted below. He is awake, perseverating "I take bipolar, I take bipolar...." Agitated and has some inspiratory stridor. Tmax 100.8, O2 sats acceptable. Had to be placed in hand cuffs due to pulling out tube and removing oxygen mask. Cor: Reg tachycardia. Abdomen: Soft non-tender. O2 Sats better on Mask than on BiPap currently. Will ask [facility] staff to loosen cuffs and if possible or change to wide strap ties. Coarse rhonchi and wheezes on lung exam. Discussed starting meds for mood stabilization with Dr. Cardenas. MD Parish <Leroy Boston - Last Filed: 03/07/18 16:02>
[2018-03-07] MEDS ORDERED: Sodium Chloride For Inhalation 0.9% 3 ML NEB ONE ×3 (06:12→12:57)
[2018-03-07] MEDS: Vancomycin HCl 1.25 GM in Sodium Chloride 0.9% 250 ML 250 ML IVPB SCH ×3 (07:57→22:59)
[2018-03-07] MEDS: Sodium Chloride 0.9% 1,000 ML IV SCH ×2 (07:59→14:15)
[2018-03-07] MEDS: Vancomycin HCl 1.5 GM in Sodium Chloride 0.9% 250 ML 300 ML IVPB SCH (08:00)
--- NOTE | 2018-03-07 08:00 | PRG ---
DATE OF SERVICE: 03/07/2018 The patient self extubated this morning. He has had some stridorous type air noises since which are intermittent. PHYSICAL EXAMINATION: VITAL SIGNS: His temperature is 100.2, pulse 90, blood pressure 115/81. 24 hour intake 3438, output 1405. HEENT: Unremarkable. NECK: No JVD. LUNGS: Fairly clear. CARDIOVASCULAR: S1, S2 regular. ABDOMEN: Soft. EXTREMITIES: No edema. LABORATORY DATA: White blood cell count 9.6, hematocrit 37.3, platelet count 151. Sodium 139, potas sium 3.7, chloride 110, CO2 22, BUN 8, creatinine 0.7, glucose 84. Chest x-ray shows no acute changes. ASSESSMENT: 1. Status post respiratory failure related to status epilepticus. 2. Seizure disorder. 3. Question of some malingering. PLAN: 1. Continue observation in the CCU. Continuing antibiotic coverage for fever which was thought to b e secondary to possible aspiration pneumonia. 2. BiPAP if needed for stridorous airway activity.
[2018-03-07] MEDS ORDERED: Dexamethasone 4 mg/ml Vial ONE (08:07)
[2018-03-07] MEDS: Pantoprazole 40 MG VIAL IVP SCH (08:09)
--- NOTE | 2018-03-07 08:37 | RAD ---
CHEST ONE VIEW: History: Ventilated patient. Comparison: Chest radiograph 03-06-18. FINDINGS: Patient's endotracheal tube tip is above the level of the clavicles 2 cm. Right IJ central venous cat heter is similar. Exam is similar to rightward patient rotation. There is prominence at the right hil um. No pneumothorax. IMPRESSION: Similar appearance to the chest given patient rotation. There is prominence of the right hilum which may represent adenopathy or mass. Non-emergency CT of the chest may be beneficial. POS: [facility]
[2018-03-07] MEDS ORDERED: Dexamethasone 4 mg/ml Vial SLOW IVP SCH (09:00)
[2018-03-07] MEDS ORDERED: Sterile Water 10 ML VIAL FS SCH (09:30)
[2018-03-07] MEDS ORDERED: Ziprasidone 20 MG VIAL IM SCH (09:30)
[2018-03-07] MEDS ORDERED: hydrALAZINE 20 MG/ML VIAL SLOW IVP PRN (20:07)
[2018-03-07] MEDS ORDERED: Haloperidol Lactate 5 MG/ML VIAL SLOW IVP PRN (20:08)
--- NOTE | 2018-03-07 20:12 | PDOC.EVN ---
Event Note - Event Note Event Note: Called to bedside for respiratory distress Nursing staff states he has been retracting and complaining of SOB all day O2 sat is 92% on mask, HR 120s, supraclavicular retractions, can speak 1 word at time, rhonci on L, decreased breath sounds on the R air movement present Ordered: CXR, ABG, CBC, CMP stat - CXR shows congestion on R no evidence of pneumo Spoke to Dr. Holbrook - suggests trial of Bipap pending results of ABG <Blayne Frank - Last Filed: 03/07/18 20:09> - Event Note Event Note: I spoke with Dr. Frank by phone and discussed the exam, assessment and plan and I agree with his documentation and plan. MD Parish <Leroy Boston - Last Filed: 03/08/18 14:10>
[2018-03-07] MEDS ORDERED: Lorazepam 2 MG/ML VIAL ONE (20:29)
--- NOTE | 2018-03-07 20:29 | PDOC.EVN ---
Event Note - Event Note Event Note: Called to bedside for onset of "full body" seizures at 2018 On arrival to the room the patient is non-responsive, is having light tremors throughout the body Resolved at 2025 Ordered 2mg Ativan IV
[2018-03-07] MEDS: Enoxaparin Sodium 40 MG/0.4 ML SYRINGE SC SCH (20:39)
--- NOTE | 2018-03-07 20:47 | RAD ---
SINGLE VIEW OF THE CHEST: 03/07/18 COMPARISON: 03/07/18 HISTORY: Respiratory distress. FINDINGS: Single view of the chest shows a cardiomediastinal silhouette which is upper limits of normal in size . The central venous catheter is unchanged in position. The endotracheal tube and NG tube have been r emoved. There is no evidence of pleural effusion. Right hilar prominence is again seen. IMPRESSION: Stable exam, status post extubation. POS: [facility]
[2018-03-07 21:09] LABS: #Eosinphils 0.1 thou/uL (0.0-0.7); #Lymphocytes 1.9 thou/uL (1.20-3.40); #Monocytes 0.9 thou/uL (0.11-0.59); #Neutrophils 7.7 thou/uL (1.40-6.50); %Basophils 0.2 % (0.0-1.0); %Eosinophils 0.7 % (0.0-10.0); %Lymphocytes 18.4 % (21.0-51.0); %Monocytes 8.1 % (0.0-10.0); %Neutrophils 72.7 % (42.0-75.0); Hemoglobin 13.2 g/dL (14.0-18.0); Mean Corpuscular HGB CONC 33.4 g/dL (32.0-36.0); Mean Corpuscular Hemoglobin 33.6 pg (27.0-31.0); Mean Platelet Volume 7.1 fL (7.4-10.4); Platelet Count 188 thou/uL (130-400); RBC Distribution Width 11.3 % (11.5-14.5); Red Blood Cell (RBC) Count 3.93 mill/uL (4.70-6.10); White Blood Cell (WBC) Count 10.5 thou/uL (4.8-10.8)
[2018-03-07 21:35] LABS: ALT (SGPT) 14 U/L (8-55); AST (SGOT) 19 U/L (5-34); Albumin 3.5 g/dL (3.5-5.0); Alkaline Phosphatase 62 U/L (40-150); Anion Gap 14 mmol/L (10-20); BUN (Urea Nitrogen) 5 mg/dL (8.9-20.6); Bilirubin, Total 0.6 mg/dL (0.2-1.2); Calc. Creatinine Clearance 178 mL/min (70-130); Calcium 8.5 mg/dL (7.8-10.44); Carbon Dioxide 21 mmol/L (22-29); Chloride 115 mmol/L (98-107); Estimated GFR-MDRD Greater than 90; Globulin 2.9 g/dL (2.4-3.5); Glucose 98 mg/dL (70-105); Potassium 3.9 mmol/L (3.5-5.1); Protein, Total 6.4 g/dL (6.0-8.3); Sodium 146 mmol/L (136-145)
[2018-03-07] MEDS: Haloperidol Lactate 5 MG/ML VIAL SLOW IVP SCH (22:57)
[2018-03-08] MEDS: Haloperidol Lactate 5 MG/ML VIAL SLOW IVP SCH ×3 (01:00→09:09)
[2018-03-08] MEDS: Lactated Ringer's 1,000 ML IV SCH ×3 (02:29→18:25)
[2018-03-08 04:59] LABS: Anion Gap 10 mmol/L (10-20); BUN (Urea Nitrogen) 5 mg/dL (8.9-20.6); Calc. Creatinine Clearance 185 mL/min (70-130); Calcium 8.2 mg/dL (7.8-10.44); Carbon Dioxide 24 mmol/L (22-29); Chloride 115 mmol/L (98-107); Estimated GFR-MDRD Greater than 90; Glucose 90 mg/dL (70-105); Potassium 3.6 mmol/L (3.5-5.1); Sodium 145 mmol/L (136-145)
[2018-03-08 05:05] LABS: Vancomycin, Trough 21.2 ug/mL
[2018-03-08] MEDS: Sodium Chloride 0.9% 1,000 ML IV SCH (05:22)
[2018-03-08] MEDS: Vancomycin HCl 1.25 GM in Sodium Chloride 0.9% 250 ML 250 ML IVPB SCH ×3 (05:23→22:24)
[2018-03-08] MEDS: Piperacillin/Tazobactam 4.5 GM in Sodium Chloride 0.9% 100 ML IVPB SCH ×3 (05:23→21:13)
--- NOTE | 2018-03-08 06:50 | PDOC.FM ---
- Subjective Subjective: Patient developed respiratory distress overnight and was placed on BiPAP. He had an episode of "muscle twitching," but not true generalized tonic-clonic seizures for which he received a dose of ativan. He had cough productive of thick white sputum. He is currently resting comfortably on BiPAP - Objective MAR Reviewed: Yes Vital Signs & Weight: Vital Signs (12 hours) Temp Pulse Resp Pulse Ox 03/08/18 01:19 99 03/07/18 22:00 98 03/07/18 20:11 120 H 03/07/18 19:55 90 L 03/07/18 19:00 98.0 F 109 H 30 H 95 Weight Admit Weight 115.212 kg Weight 114.2 kg Most Recent Monitor Data Heart Rate from ECG 108 NIBP 147/119 NIBP BP-Mean 131 Respiration from ECG 22 SpO2 94 I&O: 03/06/18 03/07/18 03/08/18 06:59 06:59 06:59 Intake Total 3998.2 3921 3696 Output Total 1522 2065 3860 Balance 2476.2 1856 -164 Result Diagrams: 03/07/18 20:03 03/08/18 04:15 <Angela Campos - Last Filed: 03/08/18 10:25> - Objective Vital Signs & Weight: Vital Signs (12 hours) Temp Pulse Resp Pulse Ox 03/08/18 16:03 80 03/08/18 16:00 98.9 F 03/08/18 11:00 98.6 F 03/08/18 10:17 83 03/08/18 08:00 97.9 F 83 15 98 03/08/18 07:02 86 03/08/18 07:00 97.9 F 03/08/18 06:00 99.9 F H Weight Admit Weight 115.212 kg Weight 114.2 kg Most Recent Monitor Data Heart Rate from ECG 76 NIBP 114/54 NIBP BP-Mean 80 Respiration from ECG 21 SpO2 100 I&O: 03/07/18 03/08/18 03/09/18 06:59 06:59 06:59 Intake Total 3921 4504 1841 Output Total 2065 4145 775 Balance 0413 742 5331 Result Diagrams: 03/07/18 20:03 03/08/18 04:15 <Leroy Boston - Last Filed: 03/08/18 17:45> Phys Exam - Physical Examination Constitutional: NAD Respiratory: clear to auscultation bilateral Cardiovascular: RRR Gastrointestinal: soft, non-tender Musculoskeletal: no edema <Angela Campos - Last Filed: 03/08/18 10:25> Dx/Plan (1) Recurrent seizures Code(s): G40.909 - EPILEPSY, UNSP, NOT INTRACTABLE, WITHOUT STATUS EPILEPTICUS Status: Acute (2) Bipolar disorder Code(s): F31.9 - BIPOLAR DISORDER, UNSPECIFIED Status: Acute (3) Seizure disorder Code(s): G40.909 - EPILEPSY, UNSP, NOT INTRACTABLE, WITHOUT STATUS EPILEPTICUS Status: Acute (4) HTN (hypertension) Code(s): I10 - ESSENTIAL (PRIMARY) HYPERTENSION Status: Acute (5) Depression Code(s): F32.9 - MAJOR DEPRESSIVE DISORDER, SINGLE EPISODE, UNSPECIFIED Status : Chronic - Plan Plan: 1. Acute hypoxic respiratory failure - Per respiratory, will attempt to wean off BiPAP. - swallow study after pt is weaned off BiPAP. 2. Recurrent seizures - continue Keppra, can consider increasing keppra due to possible seizure activity this am. 3. Concern for Sepsis - LP not suggestive of meningitis - pt remains afebrile and WBC has downtrended. - continue empiric antibiotics until blood cultures result. 4. History of CVA - will continue home meds once swallow study is passed. 5. GERD - Continue Protonix 6. Bipolar Disorder - Pt on prozac outpatient. - will order Geodon prn for agitation and consider starting Seroquel when pt passes swallow therapy. 7. Hypertension - BP stable 8. Hepatitis C, history of - unsure if pt has received treatment. Will need outpatient follow-up 9. Prophylaxis - Lovenox, protonix <Angela Campos - Last Filed: 03/08/18 10:25> Attending Addendum - Attending Addendum Date/Time: 03/08/18 9681 I personally evaluated the patient in ICU and discussed the management with Dr. Sam Campos. I agree with the History, Examination, Assessment and Plan documented above with any addition or exceptions noted below. More relaxed today. Appears to be tolerating BiPap. Nods he is doing ok. Lungs : clear except for coarse breath sounds. No rales, rhonchi or wheezes anteriorly. Cor: RRR. Abd: soft non-tender. A: RLL aspiration pneumonia. Improving Seizures recurrent. P: Agree with Dr. Campos's plan as documented above. MD Parish <Leroy Boston - Last Filed: 03/08/18 17:45>
[2018-03-08] MEDS: Pantoprazole 40 MG VIAL IVP SCH (09:08)
--- NOTE | 2018-03-08 09:28 | RAD ---
AP VIEW CHEST: HISTORY: Ventilator-dependent patient. FINDINGS: AP view chest is obtained on 03/08/18. Comparison is made to previous exam from 03/07/18. AP view chest demonstrates EKG leads seen over the chest. There is a right jugular central line seen . Mild cardiomegaly is seen. Mild pulmonary vascular congestion is seen. No evidence of pneumonia is seen. IMPRESSION: Cardiomegaly and pulmonary vascular congestion; otherwise, unremarkable AP view chest. POS: [facility]
[2018-03-08] MEDS ORDERED: Ziprasidone 20 MG VIAL IM PRN (10:49)
[2018-03-08 12:06] LABS: HIV (1/2) Antibody/Antigen Non-Reactive (NonReactive); HIV 1/2 INDEX 0.08 S/CO (<1.00); Syphilis Antibody Nonreactive (Nonreactive); Syphilis Antibody Index 0.06 S/CO (<1.00 Non-Reactive)
[2018-03-08] MEDS: Enoxaparin Sodium 40 MG/0.4 ML SYRINGE SC SCH (21:15)
[2018-03-08] MEDS: guaiFENesin ER 600 MG TAB PO SCH (21:26)
--- NOTE | 2018-03-08 21:58 | PRG ---
DATE OF SERVICE: 03/08/2018 SUBJECTIVE: Mr. Marquez was in no distress. Today, he has had BiPAP and he is resting comfortably, awakened, and nodded appropriately. His BiPAP have been off earlier and he did well without BiPAP, but once an episode was put back on him. OBJECTIVE: VITAL SIGNS: Heart rate is 80, blood pressure 114/54 this evening, respiratory rate is 22. Intake and output is positive 359. LUNGS: Clear. HEART: Regular rhythm. ABDOMEN: Soft. EXTREMITIES: Without asymmetry. LABORATORY DATA: White count yesterday was normal. Sodium 145, potassium 3.6, chloride 115, bicarbonate 24, BUN 5, creatinine 0.78. Chest radiograph today shows a central line, no alveolar infiltrates seen. IMPRESSION: 1. Status post seizures with intubation. 2. Status post self extubation. 3. Respiratory distress yesterday, but that was very inconsistent with a physiological problem. He improves with placement Trendelenburg earlier in the day and then apparently improved with antipsychotics as well. BiPAP has been used to treat retain secretions but also for a probable sleep apnea. He will remain in the unit one more day, but probably can be transferred out tomorrow. Cultures have been reviewed, he has no positive cultures. His antibiotics can be simplified in my opinion. I do believe he is significant component of manipulative behavior. He also has physical exam findings of self-mutilation. He has multiple healed longitudinal laceration torres on both arms. Maybe try stable to transfer back to the [facility] in 24-48 hours. I am not sure what his baseline functional status is. Critical care time 35 minutes. DAYRON
[2018-03-08] MEDS: Lorazepam 2 MG/ML VIAL SLOW IVP PRN (21:59)
[2018-03-08] MEDS ORDERED: Sodium Chloride 0.65% Nasal 44 ML BOT EA NARE PRN (22:10)
[2018-03-09] MEDS: Lactated Ringer's 1,000 ML IV SCH ×5 (03:33→21:28)
[2018-03-09 03:47] LABS: Anion Gap 9 mmol/L (10-20); BUN (Urea Nitrogen) 5 mg/dL (8.9-20.6); Calc. Creatinine Clearance 200 mL/min (70-130); Calcium 8.5 mg/dL (7.8-10.44); Carbon Dioxide 27 mmol/L (22-29); Chloride 113 mmol/L (98-107); Estimated GFR-MDRD Greater than 90; Glucose 79 mg/dL (70-105); Potassium 3.4 mmol/L (3.5-5.1); Sodium 146 mmol/L (136-145)
[2018-03-09 03:59] LABS: Vancomycin, Trough 21.3 ug/mL
[2018-03-09] MEDS: Piperacillin/Tazobactam 4.5 GM in Sodium Chloride 0.9% 100 ML IVPB SCH (05:01)
[2018-03-09] MEDS: Vancomycin HCl 1.25 GM in Sodium Chloride 0.9% 250 ML 250 ML IVPB SCH (05:46)
--- NOTE | 2018-03-09 07:15 | PDOC.FM ---
- Subjective Subjective: Patient reportedly had a seizure yesterday evening, however immediately after he was alert and conversant. He was given 2 mg of Ativan. He was taken off of BiPAP yesterday. However he requests to be placed back on it whenever he has significant cough. No other adverse events. Pt has no complaints this morning. - Objective MAR Reviewed: Yes Vital Signs & Weight: Vital Signs (12 hours) Pulse Pulse Ox 03/09/18 07:02 95 03/09/18 00:23 70 Weight Admit Weight 115.212 kg Weight 114.2 kg Most Recent Monitor Data Heart Rate from ECG 77 NIBP 129/71 NIBP BP-Mean 84 Respiration from ECG 25 SpO2 98 I&O: 03/08/18 03/09/18 03/10/18 06:59 06:59 06:59 Intake Total 4504 3791 Output Total 4145 1870 Balance 359 1921 Result Diagrams: 03/07/18 20:03 03/09/18 03:17 <Angela Campos - Last Filed: 03/09/18 07:34> - Objective Vital Signs & Weight: Vital Signs (12 hours) Temp Pulse Resp Pulse Ox 03/09/18 11:14 99.8 F H 72 22 H 03/09/18 08:00 99.8 F H 72 22 H 95 03/09/18 07:02 95 03/09/18 07:00 99.8 F H Weight Admit Weight 115.212 kg Weight 119 kg Most Recent Monitor Data Heart Rate from ECG 76 NIBP 119/58 NIBP BP-Mean 71 Respiration from ECG 20 SpO2 98 I&O: 03/08/18 03/09/18 03/10/18 06:59 06:59 06:59 Intake Total 4504 3791 550 Output Total 4145 1870 500 Balance 359 1921 50 Result Diagrams: 03/07/18 20:03 03/09/18 03:17 <Leroy Boston - Last Filed: 03/09/18 15:01> Phys Exam - Physical Examination Constitutional: NAD Respiratory: clear to auscultation bilateral Cardiovascular: RRR Gastrointestinal: soft, non-tender Musculoskeletal: no edema Neurological: moves all 4 limbs Psychiatric: normal affect, A&O x 3 <Angela Campos - Last Filed: 03/09/18 07:34> Dx/Plan (1) Recurrent seizures Code(s): G40.909 - EPILEPSY, UNSP, NOT INTRACTABLE, WITHOUT STATUS EPILEPTICUS Status: Acute (2) Bipolar disorder Code(s): F31.9 - BIPOLAR DISORDER, UNSPECIFIED Status: Acute (3) Seizure disorder Code(s): G40.909 - EPILEPSY, UNSP, NOT INTRACTABLE, WITHOUT STATUS EPILEPTICUS Status: Acute (4) HTN (hypertension) Code(s): I10 - ESSENTIAL (PRIMARY) HYPERTENSION Status: Acute (5) Depression Code(s): F32.9 - MAJOR DEPRESSIVE DISORDER, SINGLE EPISODE, UNSPECIFIED Status : Chronic - Plan Plan: 1. Seizure disorder - Continue Keppra 500 mg BID. Will increase to 1000 mg after one week. - Ativan prn for breakthrough seizures. 2. Hypernatremia - will likely improve after pt is able to take in PO fluids. - Speech recs appreciated. 3. History of CVA - will continue home meds after speech eval is complete 4. GERD - continue Protonix 5. Bipolar - pt is only on Prozac outpatient; Will defer medication change to pt's outpatient physician due to uncertain diagnosis. - PRN medications available for agitation 6. Hypertension - BPs have been stable. - Will resume home antihypertensives after swallow study is complete. 7. History of Hep C. - outpatient follow-up warranted Prophylaxis Protonix, Lovenox Disposition: stable, likely transfer out of ICU to [facility] later today. <Angela Campos - Last Filed: 03/09/18 07:34> Attending Addendum - Attending Addendum Date/Time: 03/09/18 3635 I personally evaluated the patient and discussed the management with Dr. Sam Campos. I agree with the History, Examination, Assessment and Plan documented above with any addition or exceptions noted below. Has been weaned off BiPap. More alert and conversant. Less agitated. Lungs: CTA. Cor: RRR, no murmur. No edema. A: Improved. P: Agree with Dr. Holbrook's plan to Transfer to [facility] telemetry and monitor. Recent shaking spells with alertness do not appear to be true tonic-clonic seizures. Hope to get him on oral medications soon. MD Parish <Leroy Boston - Last Filed: 03/09/18 15:01>
[2018-03-09] MEDS: Lorazepam 2 MG/ML VIAL SLOW IVP PRN ×2 (07:54→21:21)
[2018-03-09] MEDS: Pantoprazole 40 MG VIAL IVP SCH (07:54)
[2018-03-09] MEDS: guaiFENesin ER 600 MG TAB PO SCH ×2 (07:54→20:28)
--- NOTE | 2018-03-09 09:49 | RAD ---
AP VIEW CHEST: HISTORY: Ventilator-dependent patient. FINDINGS: AP view chest is obtained on 03/09/18. Comparison is made to previous exam from 03/08/18. AP view chest demonstrates EKG leads seen over the chest. There is a right jugular central line in p lace. Cardiomegaly is seen. Pulmonary vascular congestion is seen. No evidence of effusions, pneum onia, or pneumothorax is seen. IMPRESSION: Cardiomegaly and pulmonary vascular congestion. POS: [facility]
--- NOTE | 2018-03-09 13:39 | PRG ---
DATE OF SERVICE: 03/09/2018 SUBJECTIVE: Andrés is in no distress. He no longer needs BiPAP. OBJECTIVE: VITAL SIGNS: In my opinion, he is afebrile, heart rate 72, respiratory rate 22, and blood pressure 1 19/58. LUNGS: Clear. HEART: Regular rhythm. ABDOMEN: Soft. GENERAL: He answers questions slowly. He is in no distress. IMAGING: Chest radiograph shows mild increase in interstitial markings. IMPRESSION: 1. Status post intubation for seizures. 2. Status post self extubation with no stridor or respiratory distress. 3. Empiric antimicrobial therapy. I have simplified his antibiotics, all cultures are negative. 4.? Behavior point towards secondary gain 2 days ago. This has not recurred, but I do believe some of this behavior is consistent with an effort not to get that sent back into his unit. He is stable and moved to the stroke unit. Per CDC guidelines, he should not be notified of anticipa lissa date of discharge, but that should be communicated with the staff. He might be a patient that wo uld be appropriate to go to the [facility] before he goes back to his unit.
[2018-03-09] MEDS ORDERED: Vancomycin HCl 1 GM in Premix Bag 1 BAG IVPB SCH (14:00)
[2018-03-09] MEDS: Enoxaparin Sodium 40 MG/0.4 ML SYRINGE SC SCH (20:28)
[2018-03-09] MEDS: Amoxicillin/Potassium Clav 875 MG TAB PO SCH (20:28)
--- NOTE | 2018-03-09 23:53 | PDOC.EVN ---
Event Note - Event Note Event Note: Called to bedside by nursing due to pt complaint of new onset cough and SOB. Pt states that he is having trouble catching his breath and has chest pain all over. This SOB and pain started when he started coughing within the past 10 minutes. Pain is reproducible with palpation and does not radiate to L arm, neck , or jaw. Lungs have mild wheezes in bases b/l. Currently O2 sat is mid 90s on 2L, this is unchanged from prior to this episode. BP is 129/77 and HR is 77. Pt had seizure activity earlier this evening and was treated with ativan. Pt being treated with duoneb. CXR pending.
[2018-03-10] MEDS: Lorazepam 2 MG/ML VIAL SLOW IVP PRN (00:10)
[2018-03-10] MEDS: Lactated Ringer's 1,000 ML IV SCH (04:36)
[2018-03-10 05:57] LABS: Anion Gap 16 mmol/L (10-20); BUN (Urea Nitrogen) 6 mg/dL (8.9-20.6); Calc. Creatinine Clearance 218 mL/min (70-130); Calcium 8.4 mg/dL (7.8-10.44); Carbon Dioxide 21 mmol/L (22-29); Chloride 107 mmol/L (98-107); Estimated GFR-MDRD Greater than 90; Glucose 69 mg/dL (70-105); Potassium 3.1 mmol/L (3.5-5.1); Sodium 141 mmol/L (136-145)
--- NOTE | 2018-03-10 08:09 | PRG ---
DATE OF SERVICE: 03/10/2018 The patient was very reluctant to talk to me today. All he can tell me was he had difficulty sleepin g last night. PHYSICAL EXAMINATION: VITAL SIGNS: Temperature 98.7, pulse 70, respirations 18, O2 sat 97%, blood pressure 120/74. HEENT: Unremarkable. NECK: Supple. No JVD. CHEST: Fairly clear without wheezing or rhonchi. CARDIAC: S1 and S2 regular. ABDOMEN: Soft. EXTREMITIES: No edema. LABORATORY DATA: Sodium 141, potassium 3.1, chloride 107, CO2 21, BUN 6, creatinine 0.7, glucose 69. ASSESSMENT: 1. Status post seizure. 2. Status post respiratory failure requiring mechanical ventilation. PLAN: The patient seems to be doing better. His IV antibiotics have been switched to oral antibioti cs. His central line needs to be discontinued. I would think he could be discharged back to the [facility] at any time.
[2018-03-10] MEDS ORDERED: Potassium Chloride 40 MEQ in Premix Bag 1 BAG IVPB SCH (08:15)
[2018-03-10] MEDS ORDERED: Potassium Chloride 20 MEQ TAB PO SCH (08:30)
[2018-03-10] MEDS: Amoxicillin/Potassium Clav 875 MG TAB PO SCH ×2 (08:32→21:02)
[2018-03-10] MEDS: guaiFENesin ER 600 MG TAB PO SCH ×2 (08:32→21:02)
--- NOTE | 2018-03-10 08:32 | RAD ---
CHEST 1 VIEW: Date; 03/09/18 HISTORY: Cough. Dyspnea. COMPARISON: Earlier exam of same date. FINDINGS: Cardiac silhouette is magnified and upper limits of normal in size. Pulmonary vasculature remains upp er limits of normal, but slightly improved. Patient is slightly rotated rightward. Right internal jug ular central venous catheter remains in place. No evidence of pneumothorax. secured entrance monitor leads ove rlie the chest. IMPRESSION: Slight interval decrease in radiographic appearance of pulmonary vascular congestion. POS: OFF
[2018-03-10] MEDS ORDERED: Potassium Chloride 40 MEQ, Admixture Fee 1 EACH in Sodium Chloride 0.9% 250 ML 250 ML IVPB SCH (10:00)
--- NOTE | 2018-03-10 11:00 | PDOC.FM ---
Addendum entered and electronically signed by Juan Krishnan MD 03/10/18 11:33 : Spoke with Dr. Coburn. Plans for continuous EEG overnight to evaluate seizure vs. pseudoseizure. Agreed to increase of keppra. Original Note: - Subjective Subjective: CC: multiple complaints HPI: Patient states he still has not been able to eat. Complains of chest discomfort, feeling like he got hit by multiple trucks, and the room being to warm. Speech therapy saw and recommends modified barium swallow. Had pseudoseizure and seizure overnight. easily resolved with ativan. - Objective MAR Reviewed: Yes Vital Signs & Weight: Vital Signs (12 hours) Temp Pulse Resp BP Pulse Ox 03/10/18 07:32 98.7 F 70 18 128/74 97 03/10/18 03:51 98.3 F 87 20 128/73 93 L 03/10/18 02:36 93 L 03/10/18 02:34 93 L 03/09/18 23:59 98.0 F 94 24 H 129/77 95 Weight Admit Weight 115.212 kg Weight 123.4 kg Most Recent Monitor Data Heart Rate from ECG 76 NIBP 119/58 NIBP BP-Mean 71 Respiration from ECG 20 SpO2 98 I&O: 03/09/18 03/10/18 03/11/18 06:59 06:59 06:59 Intake Total 3791 550 1815 Output Total 0941 001 5930 Balance 1921 50 415 Result Diagrams: 03/07/18 20:03 03/10/18 04:46 Radiology Reviewed by me: Yes (interval improvement CXR) <Juan Krishnan - Last Filed: 03/10/18 10:57> - Objective Vital Signs & Weight: Vital Signs (12 hours) Temp Pulse Resp BP Pulse Ox 03/10/18 08:32 98.7 F 70 18 97 03/10/18 07:32 98.7 F 70 18 128/74 97 03/10/18 03:51 98.3 F 87 20 128/73 93 L 03/10/18 02:36 93 L 03/10/18 02:34 93 L 03/09/18 23:59 98.0 F 94 24 H 129/77 95 Weight Admit Weight 115.212 kg Weight 123.4 kg Most Recent Monitor Data Heart Rate from ECG 76 NIBP 119/58 NIBP BP-Mean 71 Respiration from ECG 20 SpO2 98 I&O: 03/09/18 03/10/18 03/11/18 06:59 06:59 06:59 Intake Total 3791 550 1815 Output Total 5903 531 2321 Balance 1921 50 415 Result Diagrams: 03/07/18 20:03 03/10/18 04:46 <Paul Montero R - Last Filed: 03/10/18 11:56> Phys Exam - Physical Examination Constitutional: NAD HEENT: moist MMs, sclera anicteric Respiratory: no wheezing, clear to auscultation bilateral Cardiovascular: RRR, no significant murmur Gastrointestinal: soft, non-tender Musculoskeletal: edema present (trace ) Neurological: non-focal, moves all 4 limbs Psychiatric: normal affect, A&O x 3 <Juan Krishnan - Last Filed: 03/10/18 10:57> Dx/Plan (1) Recurrent seizures Code(s): G40.909 - EPILEPSY, UNSP, NOT INTRACTABLE, WITHOUT STATUS EPILEPTICUS Status: Acute Plan: will increase keppra to 1000 mg BID. - will call neurology to see if they have any additional recommendations. (2) Seizure disorder Code(s): G40.909 - EPILEPSY, UNSP, NOT INTRACTABLE, WITHOUT STATUS EPILEPTICUS Status: Acute Plan: see recurrent seizures for plan. (3) Hyperkalemia Code(s): E87.5 - HYPERKALEMIA Status: Acute Plan: replaced with 40 mEq. (4) Dysphagia Code(s): R13.10 - DYSPHAGIA, UNSPECIFIED Status: Acute QualifierTitle: Dysphagia type: unspecified Qualified Code(s): R13.10 - Dysphagia, unspecified Plan: Speech therapy performing barium swallow. f/u with results. could discharge once able to tolerate PO. (5) HTN (hypertension) Code(s): I10 - ESSENTIAL (PRIMARY) HYPERTENSION Status: Acute QualifierTitle: Hypertension type: essential hypertension Qualified Code( s): I10 - Essential (primary) hypertension Plan: well controlled. <Juan Krishnan - Last Filed: 03/10/18 10:57> Attending Addendum - Attending Addendum Date/Time: 03/10/18 1153 I personally evaluated the patient and discussed the management with Dr. Krishnan. I agree with the History, Examination, Assessment and Plan documented above with any addition or exceptions noted below. Patient denies complaints currently. No recent evidence of true seizure activity. He will be monitored on video EEG overnight per Neuro. Increasing Keppra. If negative, should be stable for discharge back to infirmary[facility]ail. Expect his recent activity is possibly for secondary gain as he has a nonexistant post-ictal state. Getting MBS with speech to determine safe diet. <Paul Montero - Last Filed: 03/10/18 11:56>
[2018-03-10 12:03] VITALS: BMI 35.9
--- NOTE | 2018-03-10 15:00 | RAD ---
MODIFIED BARIUM SWALLOW WITH SPEECH THERAPIST: HISTORY: A 47-year-old male with concern for aspiration, oropharyngeal dysphagia with feeding difficulty. FLUOROSCOPY TIME: 1.6 minutes. DOSE: 1.197 uGy*^cm2. FINDINGS: The patient swallowed multiple consistencies in upright lateral position. There was prompt swallowin g reflex. No pooling within the valleculae or piriform sinuses. No evidence of aspiration or penetr ation. IMPRESSION: Unremarkable modified barium swallow. No aspiration or penetration. POS: [facility]
--- NOTE | 2018-03-10 19:30 | PRG ---
DATE OF SERVICE: 03/10/2018 SUBJECTIVE: Mr. Marquez who presented with a generalized tonic-clonic seizure, has been having seizures almost on a daily basis. I had a long discussion with the patient today, who mentioned that he has a history of seizure since childhood. He had outgrown his seizures and has not been on a seizure medication since childhood. He does not recall what medication was he on if any during his childhood. He reports that he has not been on a seizure medicine since his childhood. He had a seizure in 2017 for which he had seen a physician in [place] and at that time, he was started on Dilantin. He has a history of bipolar disorder for which he has been taking Tegretol 3 tablets once a day at bedtime. However, during his last visit with [place] physician, his Dilantin was discontinued and his Tegretol was switched to 3 times a day. He does not recall him having a seizure, he has no preictal aura. He suddenly passes out and has no recollection of the event that takes place. OBJECTIVE: VITAL SIGNS: Blood pressure of 152/75, pulse of 65, temperature of 98.3, respirations of 14, O2 sats of 99% on 2 liter nasal cannula. GENERAL: Well-developed, well-nourished male, in no apparent distress. RESPIRATORY: Clear to auscultation bilaterally. CARDIOVASCULAR: Regular rate and rhythm. NEUROLOGICAL: Mental status: The patient is awake, alert, oriented x3. Speech and language: Fluent speech. Cranial nerves: Pupils are 3 mm and reactive. Visual dickey are intact. External muscles are intact. No nystagmus noted. Face is symmetric. Tongue and uvula are midline. Motor exam showed normal tone and bulk with 5/5 strength in both upper and lower extremities. Sensory: Sensation is intact and symmetric. LABORATORY DATA: Labs are reviewed, which included CBC, BMP, which is significant for hemoglobin 13.2, hematocrit 39.6, potassium of 3.1, otherwise unremarkable. His EEG done initially was normal. IMPRESSION: Generalized tonic-clonic seizure. ASSESSMENT AND PLAN: Mr. Marquez is a 47-year-old male, who presented with the recurrent episodes of seizures. He continues to have one spell on a daily basis , which are difficult to say whether they are truly epileptic versus nonepileptic. I have transferred the patient to the IMCU for continuous EEG monitoring. I will recommend continuing on Keppra 1000 mg twice daily. We will need to add Tegretol that he was taking prior to admission as it was being taken for bipolar disorder. I will follow up the results of continuous EEG monitoring and provide further recommendations at that time. Thank you for consultation. DAYRON
[2018-03-10] MEDS ORDERED: levETIRAcetam In NaCl (Iso-Os) 1,000 MG in Premix Bag 1 BAG IVPB SCH (21:00)
[2018-03-10] MEDS: Enoxaparin Sodium 40 MG/0.4 ML SYRINGE SC SCH (21:02)
[2018-03-11 04:48] LABS: Anion Gap 13 mmol/L (10-20); BUN (Urea Nitrogen) 7 mg/dL (8.9-20.6); Calc. Creatinine Clearance 229 mL/min (70-130); Calcium 8.4 mg/dL (7.8-10.44); Carbon Dioxide 27 mmol/L (22-29); Chloride 104 mmol/L (98-107); Estimated GFR-MDRD Greater than 90; Glucose 76 mg/dL (70-105); Potassium 3.1 mmol/L (3.5-5.1); Sodium 141 mmol/L (136-145)
--- NOTE | 2018-03-11 07:50 | PDOC.FM ---
- Subjective Subjective: CC: cough HPI: states he still has a cough but the mucinex makes it better. radioactivity technician states she is going to talk to Dr. Coburn to discuss dispo. No seizure events overnight per night team. - Objective MAR Reviewed: Yes Vital Signs & Weight: Vital Signs (12 hours) Temp Pulse Resp BP BP Pulse Ox 03/11/18 07:21 98.3 F 73 22 H 122/74 95 03/11/18 04:00 98.6 F 71 18 140/75 96 03/11/18 00:01 76 18 120/69 94 L 03/10/18 20:00 99.1 F 69 16 137/73 96 Weight Admit Weight 115.212 kg Weight 117.889 kg Most Recent Monitor Data Heart Rate from ECG 76 NIBP 119/58 NIBP BP-Mean 71 Respiration from ECG 20 SpO2 98 I&O: 03/10/18 03/11/18 03/12/18 06:59 06:59 06:59 Intake Total 550 2315 Output Total 500 1400 Balance 50 915 Result Diagrams: 03/07/18 20:03 03/11/18 03:55 <Juan Krishnan W - Last Filed: 03/11/18 10:29> - Objective Vital Signs & Weight: Vital Signs (12 hours) Temp Pulse Resp BP BP Pulse Ox 03/11/18 07:21 98.3 F 73 22 H 122/74 95 03/11/18 04:00 98.6 F 71 18 140/75 96 03/11/18 00:01 76 18 120/69 94 L Weight Admit Weight 115.212 kg Weight 117.889 kg Most Recent Monitor Data Heart Rate from ECG 76 NIBP 119/58 NIBP BP-Mean 71 Respiration from ECG 20 SpO2 98 I&O: 03/10/18 03/11/18 03/12/18 06:59 06:59 06:59 Intake Total 550 2315 240 Output Total 500 1400 Balance 50 915 240 Result Diagrams: 03/07/18 20:03 03/11/18 03:55 <Paul Montero R - Last Filed: 03/11/18 10:44> Phys Exam - Physical Examination Constitutional: NAD HEENT: moist MMs, sclera anicteric Respiratory: no wheezing, clear to auscultation bilateral Cardiovascular: RRR, no significant murmur Gastrointestinal: soft, non-tender Neurological: non-focal, moves all 4 limbs Psychiatric: normal affect, A&O x 3 <Juan Krishnan - Last Filed: 03/11/18 10:29> Dx/Plan (1) Recurrent seizures Code(s): G40.909 - EPILEPSY, UNSP, NOT INTRACTABLE, WITHOUT STATUS EPILEPTICUS Status: Acute Plan: Continue Keppra - f/u EEG and neurology recs. - Neurology stated the patient was on Tegretol prior to admission. Will obtain med list from [facility] and perform full reconciliation - can discharge once cleared by neurology. (2) Seizure disorder Code(s): G40.909 - EPILEPSY, UNSP, NOT INTRACTABLE, WITHOUT STATUS EPILEPTICUS Status: Acute Plan: see recurrent seizures for plan. (3) Dysphagia Code(s): R13.10 - DYSPHAGIA, UNSPECIFIED Status: Resolved QualifierTitle: Dysphagia type: unspecified Qualified Code(s): R13.10 - Dysphagia, unspecified Plan: normal modified barium swallow - cleared by speech, switch IV meds to PO. (4) HTN (hypertension) Code(s): I10 - ESSENTIAL (PRIMARY) HYPERTENSION Status: Acute QualifierTitle: Hypertension type: essential hypertension Qualified Code( s): I10 - Essential (primary) hypertension Plan: well controlled. (5) Hypokalemia Code(s): E87.6 - HYPOKALEMIA Status: Acute Plan: replaced with 80 mEq. Magnesium low. will replace with 800 mg PO. - will repeat both levels in AM if still in hospital but can follow up outpatient. <Juan Krishnan - Last Filed: 03/11/18 10:29> Attending Addendum - Attending Addendum Date/Time: 03/11/18 1043 I personally evaluated the patient and discussed the management with Dr. Krishnan. I agree with the History, Examination, Assessment and Plan documented above with any addition or exceptions noted below. Awaiting final recommendations from Neuro after patient's overnight EEG monitoring. No seizure episodes during this time per nursing. Will clarify if patient needs to be on Tegretol and adjust medication as necessary. If no further Neuro input, patient is stable for discharge back to senior living. Cleared by speech for regular diet yesterday after normal MBS. <Paul Motnero - Last Filed: 03/11/18 10:44>
[2018-03-11] MEDS: guaiFENesin ER 600 MG TAB PO SCH ×2 (09:28→20:45)
[2018-03-11] MEDS: Amoxicillin/Potassium Clav 875 MG TAB PO SCH ×2 (09:28→20:45)
[2018-03-11] MEDS: Potassium Chloride 20 MEQ TAB PO SCH ×2 (09:28→17:21)
[2018-03-11] MEDS: levETIRAcetam 500 MG TAB PO SCH ×2 (09:28→20:44)
[2018-03-11] MEDS ORDERED: Magnesium Oxide 400 MG TAB PO SCH ×2 (11:00→21:00)
--- NOTE | 2018-03-11 11:48 | PRG ---
DATE OF SERVICE: 03/11/2018 SUBJECTIVE: The patient is completing an EEG that started last night. So far, he has been no eviden ce of seizure activity. OBJECTIVE: VITAL SIGNS: Temperature 98.3, pulse 80, respirations 22, O2 sat 95% on 2 liters, and blood pressure 120/74. HEENT: Unremarkable. NECK: No JVD. CHEST: Clear. CARDIAC: S1 and S2, regular. ABDOMEN: Soft. EXTREMITIES: No edema. LABORATORY DATA: Sodium 141, potassium 3.1, chloride 104, CO2 of 27, BUN 7, creatinine 0.7, and gluc ose 76. ASSESSMENT: 1. Status post respiratory failure after apparent seizure. 2. Seizure disorder. PLAN: The patient seems to be doing well and back to baseline. No acute pulmonary needs. I would s top antibiotics after 7 total days. Hopefully, can be discharged back to the [facility].
--- NOTE | 2018-03-11 14:34 | EEG ---
Referring Physician: DR. KEIRA WINKLER EEG # [id number] PROCEDURE: Inpatient portable electroencephalogram NAME OF PATIENT: Andrés Marquez : [birth year] DATE EEG DONE: 03/05/2018 REFERRING, M.D.: DR. Keira Winkler INDICATION: Status epilepticus. REPORT: This is a 22-channel digital EEG recording utilizing 10-20 international electrode placement system on a patient who presents with status epilepticus. The patient is intubated and is on mild sedation with small amount of Diprovan. He is awake and uncooperative. During this EEG, there is abundant low amplitude beta activity noted, likely medication effect. There is also myogenic activity noted along with movement and electrode artifact. There is no asymmetry noted between the two hemispheres. There is no clear convincing epileptiform activity noted. No electrographic seizures noted. The patient does not appear to be in status epilepticus. PHOTIC STIMULATION: No photic drive seen. EK per minute. IMPRESSION: During this EEG, there is abundant low amplitude beta activity noted, likely medication effect. However, there is no clear convincing epileptiform activity noted during this recording. No electrographic seizures noted. The patient does not appear to be in status epilepticus. There is movement and electrode artifact noted during this recording. Clinical correlation recommended. Release And Technical Records Clerk: GENNA Mill Stenciler: [email or web address]
[2018-03-11] MEDS: Enoxaparin Sodium 40 MG/0.4 ML SYRINGE SC SCH (20:44)
[2018-03-12 04:34] LABS: Anion Gap 14 mmol/L (10-20); BUN (Urea Nitrogen) 10 mg/dL (8.9-20.6); Calc. Creatinine Clearance 201 mL/min (70-130); Calcium 8.5 mg/dL (7.8-10.44); Carbon Dioxide 24 mmol/L (22-29); Chloride 106 mmol/L (98-107); Estimated GFR-MDRD Greater than 90; Glucose 90 mg/dL (70-105); Potassium 3.9 mmol/L (3.5-5.1); Sodium 140 mmol/L (136-145)
[2018-03-12] MEDS ORDERED: carBAMazepine 200 MG TAB PO SCH ×3 (08:19→12:00)
--- NOTE | 2018-03-12 08:19 | PDOC.FM ---
- Subjective Subjective: CC: Cough HPI: Still complains of cough. States his mucous production has decreased. Informed him this can last 1-2 months depending on severity of aspiration. Nursing has not heard from DOC regarding placement. - Objective MAR Reviewed: Yes Vital Signs & Weight: Vital Signs (12 hours) Temp Pulse Resp BP Pulse Ox 03/12/18 04:00 98.2 F 80 20 112/80 96 03/12/18 00:00 98.2 F 80 20 129/85 96 03/11/18 22:30 98.2 F 82 22 H 96 Weight Admit Weight 115.212 kg Weight 117.843 kg Most Recent Monitor Data Heart Rate from ECG 76 NIBP 119/58 NIBP BP-Mean 71 Respiration from ECG 20 SpO2 98 I&O: 03/11/18 03/12/18 03/13/18 06:59 06:59 06:59 Intake Total 2315 720 Output Total 1400 Balance 915 720 Result Diagrams: 03/07/18 20:03 03/12/18 03:53 <Juan Krishnan W - Last Filed: 03/12/18 08:17> - Objective Vital Signs & Weight: Vital Signs (12 hours) Temp Pulse Resp BP Pulse Ox 03/12/18 04:00 98.2 F 80 20 112/80 96 03/12/18 00:00 98.2 F 80 20 129/85 96 Weight Admit Weight 115.212 kg Weight 117.843 kg Most Recent Monitor Data Heart Rate from ECG 76 NIBP 119/58 NIBP BP-Mean 71 Respiration from ECG 20 SpO2 98 I&O: 03/11/18 03/12/18 03/13/18 06:59 06:59 06:59 Intake Total 2315 720 Output Total 1400 Balance 915 720 Result Diagrams: 03/07/18 20:03 03/12/18 03:53 <Paul Montero - Last Filed: 03/12/18 10:45> Phys Exam - Physical Examination Constitutional: NAD HEENT: moist MMs, sclera anicteric Respiratory: no wheezing, clear to auscultation bilateral Cardiovascular: RRR, no significant murmur Neurological: moves all 4 limbs unchanged LLE weakness. Psychiatric: normal affect, A&O x 3 <Juan Krishnan - Last Filed: 03/12/18 08:17> Dx/Plan (1) Aspiration pneumonia Code(s): J69.0 - PNEUMONITIS DUE TO INHALATION OF FOOD AND VOMIT Status: Acute QualifierTitle: Aspiration pneumonia type: unspecified Laterality: unspecified laterality Lung location: unspecified part of lung Qualified Code(s): J69.0 - Pneumonitis due to inhalation of food and vomit Plan: Still required oxygen but is down to 1 L - Continue augmentin until 03/16 - wean oxygen. - Awaiting placement in [facility] with DOC. Request sent yesterday. (2) Recurrent seizures Code(s): G40.909 - EPILEPSY, UNSP, NOT INTRACTABLE, WITHOUT STATUS EPILEPTICUS Status: Acute Plan: Continue Keppra - EEG negative, - Restart Tegretol. Med rec performed yesterday afternoon. (3) Seizure disorder Code(s): G40.909 - EPILEPSY, UNSP, NOT INTRACTABLE, WITHOUT STATUS EPILEPTICUS Status: Acute Plan: see recurrent seizures for plan. (4) HTN (hypertension) Code(s): I10 - ESSENTIAL (PRIMARY) HYPERTENSION Status: Acute QualifierTitle: Hypertension type: essential hypertension Qualified Code( s): I10 - Essential (primary) hypertension Plan: well controlled. (5) Hypokalemia Code(s): E87.6 - HYPOKALEMIA Status: Acute Plan: replaced with 80 mEq. Magnesium low. will replace with 800 mg PO. - will repeat both levels in AM if still in hospital but can follow up outpatient. (6) Physical deconditioning Code(s): R53.81 - OTHER MALAISE Status: Acute Plan: will need PT once placed per DOC. - PT ordered. <Juan Krishnan W - Last Filed: 03/12/18 08:17> Attending Addendum - Attending Addendum Date/Time: 03/12/18 1044 I personally evaluated the patient and discussed the management with Dr. Krishnan. I agree with the History, Examination, Assessment and Plan documented above with any addition or exceptions noted below. Patient continues to be stable for discharge, but awaiting placement at [facility] due to his O2 requirement. No seizure activity on current meds. Will be ready for discharge once placement arranged. <Paul Montero - Last Filed: 03/12/18 10:45>
[2018-03-12] MEDS: Amoxicillin/Potassium Clav 875 MG TAB PO SCH (09:38)
[2018-03-12] MEDS: guaiFENesin ER 600 MG TAB PO SCH (09:39)
[2018-03-12] MEDS: levETIRAcetam 500 MG TAB PO SCH (09:39)
--- NOTE | 2018-03-12 12:59 | DIS-2 ---
DATE OF ADMISSION: 03/04/2018 DATE OF DISCHARGE: 03/12/2018 RESIDENT: Juan Krishnan M.D. ADMITTING ATTENDING: Deric Wolfe M.D. DISCHARGE ATTENDING: Paul Montero M.D. CONSULTATIONS: 1. Dr. Baljeet Yoon, Pulmonology. 2. Dr. Ally Coburn, Neurology. 3. Speech Therapy. PROCEDURES: 1. Right internal jugular central line placement on 03/06/2018. 2. Lumbar puncture on 03/06/2018. 3. Endotracheal intubation on 03/04/2018, with self-extubation on . 4. EEG showed abundant low amplitude beta activity, likely medication effect, no convincing epileptiform activity noted, does not appear to be status epilepticus. 5. EEG - 24 hour monitoring on 03/10/2018 showed no signs of seizure-like activity. IMAGIN. Brain CT 03/04/2018 showed no acute intracranial processes. 2. Chest x-ray 03/04/2018 showed evidence of congestive heart failure with probable perihilar edema bilaterally. 3. Chest x-ray 03/07/2018, slight interval decrease in radiographic appearance of pulmonary vascular congestion. 4. Modified barium swallow on 03/10/2018 - unremarkable barium swallow. No aspiration or penetration. PERTINENT LABORATORY FINDINGS: Prolactin 32.13, unremarkable CSF analysis, negative urine drug screen, negative HIV and syphilis, negative herpes simplex virus in the CSF. MICROBIOLOGY: Negative urinalysis, negative spinal fluid culture, negative blood cultures. PRIMARY DIAGNOSES: 1. Seizure with status epilepticus - resolved. 2. Recurrent seizure 3. History of seizure. 4. Aspiration pneumonia versus pneumonitis requiring oxygen. 5. Physical deconditioning. SECONDARY DIAGNOSES: 1. Hypertension. 2. History of hepatitis C. DISCHARGE MEDICATIONS: 1. Augmentin 875 mg to take every 12 hours and give until 03/17/2018. 2. Mucinex 600 mg q.12h. 3. Keppra 1000 mg b.i.d. 4. Nasal spray 1 spray to nares every 4 hours. 5. Tegretol 200 mg t.i.d. 6. Mobic 15 mg daily. 7. Prozac 20 mg at bedtime. 8. Atorvastatin 20 mg daily. 9. Aspirin 81 mg daily. 10. Vitamin D3 one tablet daily. 11. Lisinopril 5 mg daily. 12. Docusate 100 mg b.i.d. 13. Omeprazole 20 mg daily. 14. Benadryl 5 mg twice daily as needed. 15. Simethicone 80 mg t.i.d. as needed. 16. Tylenol 650 mg t.i.d. as needed. 17. Lactulose 20 mg twice daily as needed. DISCONTINUED MEDICATIONS: Carbamazepine 200 mg 3 daily. HISTORY OF PRESENT ILLNESS AND HOSPITAL COURSE: Mr. Marquez is a pleasant 47- year-old male who is currently incarcerated with the [place] [facility]. He presented with a generalized clonic tonic seizure. He was given 5 of Versed and stopped seizing. Upon arrival to the ER he began seizing again and was given an additional 5 of Versed with Ativan. He was intubated at this time since there was a concern for aspiration. He has a past medical history of seizures and 2 prior strokes with left-sided deficit. He was started on fosphenytoin in the ICU and eventually transitioned to Keppra. Neurology was consulted, recommended starting a dose of Keppra 500 mg twice daily and then to increase to 1000 mg twice daily. This was done 2 days prior to discharge. The patient self-extubated on 03/07/2018 and remained off the ventilator support through the remainder of his hospitalization. There was concern for aspiration pneumonitis versus pneumonia. He was initially started on vancomycin and Zosyn which was later transitioned to Augmentin and he will be discharged on that. At baseline the patient does not have an oxygen requirement, but has required oxygen throughout his entire hospitalization. Due to this, he will be discharged to the [facility]. After the initial seizure events and while the Keppra was being titrated the patient was experiencing pseudoseizures almost every night. The majority of the events he would withdraw to noxious stimuli and there was concern for a psychosomatic induced versus malingering. He had 24-hour EEG monitoring 2 days prior to discharge, which showed no epileptiform activity. At this time, the specialist felt the patient was stable for discharge and could be easily treated in the [facility]. Case management was consulted to make arrangements and the patient was approved. He was subsequently, discharge requiring 1-2 liters of oxygen via nasal cannula. Vital signs were otherwise unremarkable at time of discharge. DISPOSITION: Stable. DISCHARGE INSTRUCTIONS: 1. Location: The [facility] within the [place] [facility]. 2. Activity: As tolerated. I recommend physical therapy since he has been in the hospital bed for over 1 week. 3. Diet: Heart healthy. 4. Followup: The patient will follow up with health care providers at the [facility]. Approximately 35 minutes spent on this discharge including preparing discharge materials and coordinating discharge planning. DAYRON
[2018-03-12 14:22] VITALS: BP 121/78; TEMP 98.2
--- NOTE | 2018-03-13 10:20 | PQF ---
CHETAN VAN JASON MD [id number] CLINICAL DOCUMENTATION CLARIFICATION FORM: POST DISCHARGE Addendum to original discharge summary date: 03/12/2018 DATE: 03/13/18 ATTN: Dr. Montero Please exercise your independent, professional judgment in responding to the clarification form. Clinical indicators are provided on the bottom of this form for your review Please check appropriate box(s): [ ] Acute Respiratory Failure: [ ] with Hypoxia [ ] with Hypercapnia [ X ] Acute Respiratory Failure due to: (etiology) _status epilepticus [ ] Hypoxia [ ] Other diagnosis (please specify) [ ] Unable to determine In addition, please specify: Present on Admission (POA): [ ] Yes [ ] No [ ] Unable to determine For continuity of documentation, please document condition throughout progress notes and discharge summary. Thank You. CLINICAL INDICATORS - SIGNS / SYMPTOMS / LABS PCO2 50.2 on 03/04. Per H&P: He was no longer protecting his airway and thus was intubated. Per 03/05 consultation: Acute respiratory failure related to status epilepticus Per 03/08 family medicine progress note: Acute hypoxic respiratory failure. Per 03/11 progress note: Status post respiratory failure after apparent seizure. Per 03/10 progress note: Status post respiratory failure requiring mechanical ventilation. Per 03/07 progress note: Status post respiratory failure related to status epilepticus. Acute respiratory failure requiring mechanical ventilation. RISK FACTOR (per H&P) Generalized tonic clonic seizure with status epilepticus. TREATMENTS: (per medicaitons/progress notes) Monitoring of oxygenation status. Mechanical ventilation / BiPAP. ABGs. Antibiotics IV Zosyn. Vancomycin. Pulmonary Consult (This form is maintained as a part of the permanent medical record) 2014 [employer]. All Rights Reserved Loan [email or web address] [phone] MTDD
--- NOTE | 2018-03-17 13:36 | EEG ---
Referring Physician: DR. FROILAN HOLGUIN EEG # [id number] PROCEDURE: Video EEG report. NAME OF PATIENT: Andrés Marquez DATE OF : 1970. STUDY TYPE: Video electroencephalogram, 24 hours STUDY DATE: 03/10/2018 17:55 until 03/11/2018 15:30. STUDY REVIEWED AND INTERPRETED BY ME QUALITY OF STUDY: Study is of good quality for interpretation. INDICATION: Seizures, spells REPORT: This is a 22-channel digital EEG recording utilizing 10-20 international electrode placement on a patient who presents with seizures on a daily basis. AWAKE STAGE: During wakefulness the background activity consists of low to moderate amplitude 8 Hz rhythm which is symmetric and reactive. This activity is penetrated with low amplitude beta activity and also with myogenic activity representing frontalis and temporalis muscles bilaterally. During the recording , at some point artifact was noted at CZ and C3 electrodes. No asymmetry noted between the two cerebral hemispheres. DROWSINESS: Subject is able to attain periods of drowsiness with diffuse theta activity, no asymmetry or paroxysmal activity noted. SLEEP: Subject is able to attain non-REM sleep with normal sleep potentials, no asymmetry or paroxysmal activity noted. INTERICTAL EEG during this 24-hour video EEG recording, no clear convincing epileptiform activity noted no electrographic seizure activity noted. No focal asymmetry noted. ICTAL EVENTS: Patient did not have any ictal events, he did not have any of his habitual seizures during this 24-hour video EEG recording. EK per minute. IMPRESSION: This is a 24-hour video EEG recording. It is normal awake and asleep EEG, no clear convincing epileptiform activity noted, no electrographic seizures noted. No asymmetry noted between the two cerebral hemispheres. The patient did not have any ictal events during this 24-hour video EEG recording. Clinical correlation recommended. Template Inspector: GENNA Medical Receptionist: [email or web address]
--- NOTE | 2018-03-17 13:38 | EEG ---
Referring Physician: DR. FROILAN HOLGUIN EEG # [id number] PROCEDURE: Video EEG report. NAME OF PATIENT: Andrés Marquez DATE OF : 1970. STUDY TYPE: Video electroencephalogram, 24 hours STUDY DATE: 03/10/2018 17:55 until 03/11/2018 15:30. STUDY REVIEWED AND INTERPRETED BY ME QUALITY OF STUDY: Study is of good quality for interpretation. INDICATION: Seizures, spells REPORT: This is a 22-channel digital EEG recording utilizing 10-20 international electrode placement on a patient who presents with seizures on a daily basis. AWAKE STAGE: During wakefulness the background activity consists of low to moderate amplitude 8 Hz rhythm which is symmetric and reactive. This activity is penetrated with low amplitude beta activity and also with myogenic activity representing frontalis and temporalis muscles bilaterally. During the recording , at some point artifact was noted at CZ and C3 electrodes. No asymmetry noted between the two cerebral hemispheres. DROWSINESS: Subject is able to attain periods of drowsiness with diffuse theta activity, no asymmetry or paroxysmal activity noted. SLEEP: Subject is able to attain non-REM sleep with normal sleep potentials, no asymmetry or paroxysmal activity noted. INTERICTAL EEG during this 24-hour video EEG recording, no clear convincing epileptiform activity noted no electrographic seizure activity noted. No focal asymmetry noted. ICTAL EVENTS: Patient did not have any ictal events, he did not have any of his habitual seizures during this 24-hour video EEG recording. EK per minute. IMPRESSION: This is a 24-hour video EEG recording. It is normal awake and asleep EEG, no clear convincing epileptiform activity noted, no electrographic seizures noted. No asymmetry noted between the two cerebral hemispheres. The patient did not have any ictal events during this 24-hour video EEG recording. Clinical correlation recommended. Customer Engagement Manager: [employer] Industrial Energy Engineer: [email or web address] PADGETT
--- NOTE | 2018-05-10 14:28 | EKG ---
Test Reason : Blood Pressure : / mmHG Vent. Rate : 113 BPM Atrial Rate : 113 BPM P-R Int : 174 ms QRS Dur : 088 ms QT Int : 326 ms P-R-T Axes : 052 -19 063 degrees QTc Int : 447 ms Sinus tachycardia Possible Left atrial enlargement Borderline ECG Confirmed by KAILA RITCHIE, JODY ([id number]), staff editor LUIS JAY ([id number]) on 05/10/2018 2:28:06 PM Referred By: Confirmed By:JODY BRIGHT MD
== END 2018-03-12 14:22 | DRG 208 ==
LOC: ERS 19:09 → CCU 22:01 → 2SE 03-09 10:10 → IMCU/EMU 03-10 17:03 → T4-B 03-11 22:22
PROVIDERS: ADMIT Emergency Medicine; ATTEND Emergency Medicine
PROC: 5A1945Z Respiratory Ventilation, 24-96 Consecutive Hours (ICD-10-PCS; principal; 2018-03-04)
PROC: 0BH17EZ Insertion of Endotracheal Airway into Trachea, Via Natural or Artificial Opening (ICD-10-PCS; 2018-03-04)
PROC: 009U3ZX Drainage of Spinal Canal, Percutaneous Approach, Diagnostic (ICD-10-PCS; 2018-03-06)
PROC: 5A09357 Assistance with Respiratory Ventilation, Less than 24 Consecutive Hours, Continuous Positive Airway Pressure (ICD-10-PCS; 2018-03-06)
PROC: 02HV33Z Insertion of Infusion Device into Superior Vena Cava, Percutaneous Approach (ICD-10-PCS; 2018-03-06)
DX: J96.00 Acute respiratory failure, unspecified whether with hypoxia or hypercapnia (principal); J69.0 Pneumonitis due to inhalation of food and vomit; E87.0 Hyperosmolality and hypernatremia; G40.401 Other generalized epilepsy and epileptic syndromes, not intractable, with status epilepticus; E78.5 Hyperlipidemia, unspecified; I10 Essential (primary) hypertension; K21.9 Gastro-esophageal reflux disease without esophagitis; E87.6 Hypokalemia; F31.9 Bipolar disorder, unspecified; B19.20 Unspecified viral hepatitis C without hepatic coma; Z86.73 Personal history of transient ischemic attack (TIA), and cerebral infarction without residual deficits; Z91.011 Allergy to milk products; Z91.010 Allergy to peanuts; Z88.8 Allergy status to other drugs, medicaments and biological substances; Z79.82 Long term (current) use of aspirin; Z79.899 Other long term (current) drug therapy
CPT/HCPCS: 31500; 36415; 51702; 70450; 71045; 74230; 80048; 80053; 80156; 80202; 80306; 81001; 81003; 82550; 82553; 82805; 82945; 83605; 83690; 83735; 83880; 84146; 84157; 84443; 84484; 85025; 86780; 87040; 87070; 87086; 87205; 87255; 87389; 89051; 93005; 94002; 94003; 94640; 94660; 95816; 95819; 95953; 96361; 96365; 96367; 96374; 96375; 99292; C9113; G8996-GN-CJ; G8996-GN-CL; G8996-GN-CN; G8997-GN-CI; G8997-GN-CJ; J0131; J1100; J1630; J1650; J1953; J2060; J2250; J2270; J2543; J2704; J3010; J3370; J3480; J3486; J7050; J7620; Q2009

== ENCOUNTER 2018-10-03 01:42 | Emergency (ER) | payer OTHER ==
[2018-10-03 02:45] LABS: #Basophils 0.1 thou/uL (0.0-0.2); #Eosinphils 0.3 thou/uL (0.0-0.7); #Lymphocytes 1.5 thou/uL (1.20-3.40); #Monocytes 0.3 thou/uL (0.11-0.59); %Basophils 0.9 % (0.0-1.0); %Eosinophils 4.5 % (0.0-10.0); %Lymphocytes 24.2 % (21.0-51.0); %Monocytes 4.4 % (0.0-10.0); %Neutrophils 66.1 % (42.0-75.0); Hemoglobin 14.8 g/dL (14.0-18.0); Mean Corpuscular HGB CONC 32.7 g/dL (32.0-36.0); Mean Corpuscular Hemoglobin 33.5 pg (27.0-31.0); Mean Platelet Volume 6.5 fL (7.4-10.4); Platelet Count 250 thou/uL (130-400); Red Blood Cell (RBC) Count 4.41 mill/uL (4.70-6.10); White Blood Cell (WBC) Count 6.1 thou/uL (4.8-10.8)
[2018-10-03 03:01] LABS: ALT (SGPT) 11 U/L (8-55); AST (SGOT) 16 U/L (5-34); Albumin 3.9 g/dL (3.5-5.0); Alkaline Phosphatase 77 U/L (40-150); Anion Gap 12 mmol/L (10-20); BUN (Urea Nitrogen) 13 mg/dL (8.9-20.6); Bilirubin, Total 0.2 mg/dL (0.2-1.2); CK (CPK) 72 U/L (30-200); Calc. Creatinine Clearance 0 mL/min (70-130); Calcium 8.6 mg/dL (7.8-10.44); Carbon Dioxide 24 mmol/L (22-29); Chloride 106 mmol/L (98-107); Estimated GFR-MDRD Greater than 90; Globulin 3.2 g/dL (2.4-3.5); Glucose 98 mg/dL (70-105); Lipase 41 U/L (8-78); Potassium 4.3 mmol/L (3.5-5.1); Protein, Total 7.1 g/dL (6.0-8.3); Sodium 138 mmol/L (136-145)
[2018-10-03 03:56] LABS: Carbamazepine-Tegretol 12.3 ug/mL (4.0-12.0)
[2018-10-03 03:59] LABS: CKMB 0.9 ng/mL (0-6.6); Troponin I Less than 0.010 ng/mL (< 0.028)
[2018-10-03] MEDS ORDERED: levETIRAcetam In NaCl (Iso-Os) 1,000 MG in Premix Bag 1 BAG IVPB SCH (04:15)
--- NOTE | 2018-10-03 08:30 | RAD ---
CHEST 1 VIEW: HISTORY: Syncope. COMPARISON: Radiograph 03/09/2018. FINDINGS: Heart size is mildly enlarged. Interval removal of the right IJ central venous catheter. No pneumot horax. No focal confluent consolidation. IMPRESSION: No acute intrathoracic abnormality. POS: [facility]
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
== END 2018-10-03 06:43 ==
LOC: ERS 01:42
DX: R56.9 Unspecified convulsions (principal); K21.9 Gastro-esophageal reflux disease without esophagitis; E78.5 Hyperlipidemia, unspecified; F32.9 Major depressive disorder, single episode, unspecified; Z79.82 Long term (current) use of aspirin; Z79.899 Other long term (current) drug therapy; Z86.73 Personal history of transient ischemic attack (TIA), and cerebral infarction without residual deficits
CPT/HCPCS: 70450; 71045; 80053; 80156; 82550; 82553; 83690; 84146; 84484; 85025; 93005; 96365; J1953